=== PATIENT | female | born 1940 | race Hispanic/Latino ===

== ENCOUNTER 2016-08-27 06:35 | Inpatient (IN) | payer MEDICARE, OTHER ==
[2016-08-27 06:40] VITALS: BMI 24.9
[2016-08-27] MEDS ORDERED: Morphine 2 mg/ml ISec IVP STA (07:09)
--- NOTE | 2016-08-27 07:09 | ED PDOC ---
Arrival/HPI - General Chief Complaint: Lower Extremity Problem/Injury Time Seen by Provider: 08/27/16 07:03 Historian: Patient - History of Present Illness Narrative History of Present Illness (Text): 08/27/16 07:04 A 75 year old female, who denies any significant past medical history, presents to the emergency department complaining of left hip pain after a mechanical fall. Patient reports prior to arrival she stepped into the shower when she slipped and fell. Patient notes her left hip is slightly turned outwards and she can not move it at all. She denies any head trauma, loss of consciousness, or any other complaints at this time. PMD: Dr. Maradiaga Time/Duration: Prior to Arrival Symptom Onset: Sudden Symptom Course: Unchanged Quality: Other Activities at Onset: Light Context: Home Past Medical History - Provider Review Nursing Documentation Reviewed: Yes - Tetanus Immunization Tetanus Immunization: Unknown - Past Medical History Past Medical History: No Previous - Psychiatric Hx Anxiety: No Hx Substance Use: No - Surgical History Hx Section: Yes Hx Cholecystectomy: Yes Other/Comment: skin cancer - Anesthesia Hx Anesthesia: Yes Hx Anesthesia Reactions: No Hx Malignant Hyperthermia: No - Suicidal Assessment Feels Threatened In Home Enviroment: No Family/Social History - Physician Review Nursing Documentation Reviewed: Yes Family/Social History: Unknown Family HX Smoking Status: Former Smoker Hx Alcohol Use: Yes Frequency of alcohol use: Socially Hx Substance Use: No Hx Substance Use Treatment: No Allergies/Home Meds Allergies/Adverse Reactions: Allergies No Known Allergies Allergy (Verified 08/27/16 06:40) Review of Systems - Physician Review All systems were reviewed & negative as marked: Yes - Review of Systems Constitutional: absent: Other (head trauma) Cardiovascular: absent: Syncope Musculoskeletal: Other (left hip pain) Physical Exam Vital Signs Reviewed: Yes Vital Signs Temp Pulse Resp BP Pulse Ox 08/27/16 06:42 98.3 F 63 18 147/75 99 Temperature: Afebrile Blood Pressure: Normal Pulse: Regular Respiratory Rate: Normal Appearance: Positive for: Well-Appearing, Non-Toxic, Comfortable Pain Distress: None Mental Status: Positive for: Alert and Oriented X 3 - Systems Exam Head: Present: Atraumatic, Normocephalic Pupils: Present: PERRL Extroacular Muscles: Present: EOMI Conjunctiva: Present: Normal Mouth: Present: Moist Mucous Membranes Neck: Present: Normal Range of Motion Respiratory/Chest: Present: Clear to Auscultation, Good Air Exchange. No: Respiratory Distress, Accessory Muscle Use Cardiovascular: Present: Regular Rate and Rhythm, Normal S1, S2. No: Murmurs Abdomen: Present: Normal Bowel Sounds. No: Tenderness, Distention, Peritoneal Signs Back: Present: Normal Inspection Upper Extremity: Present: Normal Inspection. No: Cyanosis, Edema Lower Extremity: Present: Other (left hip shortening with external rotation of the left extremity). No: Edema, Normal ROM (secondary to pain with any attempts to move the left extremity) Neurological: Present: GCS=15, CN II-XII Intact, Speech Normal Skin: Present: Warm, Dry, Normal Color. No: Rashes Psychiatric: Present: Alert, Oriented x 3, Normal Insight, Normal Concentration Medical Decision Making ED Course and Treatment: 08/27/16 07:04 Impression: A 75 year old female with left hip pain after a mechanical fall. Differential Diagnosis include but are not limited to: fractures vs. dislocation Plan: -- EKG -- Chest X-ray -- Bilateral Hip with Pelvis X-ray -- Labs -- Morphine, Zofran and IV Fluids -- Reassess and disposition Prior Visits: Notes and results from previous visits were reviewed. The patient last presented to the emergency department on 09/05/14 for evaluation after being bitten by her cat. Progress Notes: EKG: Ordered, reviewed, and independently interpreted the EKG. Rate : 61 BPM Rhythm : NSR Interpretation : septal infarct, no acute changes. - Lab Interpretations I have reviewed the lab results: Yes - RAD Interpretation Radiology Orders: 08/27/16 07:07 CHEST PORTABLE [RAD] Stat 08/27/16 07:08 Hip Bi with Pelvis Fall Protocol [HIP MIN 2V W/ PELVIS RANCHO] [RAD] Stat - EKG Interpretation EKG Interpretation (Text): 08/27/16 07:23 NSR @61 septal infarct,NSSTT changes Interpreted by ED Physician: Yes Type: 12 lead EKG - Medication Orders Current Medication Orders: Sodium Chloride (Sodium Chloride 0.9%) 1,000 mls @ 100 mls/hr IV .Q10H DANA Discontinued Medications Morphine Sulfate (Morphine) 2 mg IVP STAT STA Stop: 08/27/16 07:10 Ondansetron HCl (Zofran Inj) 4 mg IVP ONCE ONE Stop: 08/27/16 07:10 - Transfer of Care Patient signed out to Dr:: Preethi Pending Labs:: Labs/xray/reassess/final disposition - Scribe Statement The provider has reviewed the documentation as recorded by the Lyndsayibhakeem Tamez Provider Scribe Attestation: All medical record entries made by the Scribe were at my direction and personally dictated by me. I have reviewed the chart and agree that the record accurately reflects my personal performance of the history, physical exam, medical decision making, and the department course for this patient. I have also personally directed, reviewed, and agree with the discharge instructions and disposition. Disposition/Present on Arrival - Present on Arrival Any Indicators Present on Arrival: No History of DVT/PE: No History of Uncontrolled Diabetes: No Urinary Catheter: No History of Decub. Ulcer: No History Surgical Site Infection Following: None - Disposition Have Diagnosis and Disposition been Completed?: No Diagnosis: Hip injury Disposition Time: 07:18 Patient Problems: Current Active Problems Problem Status Onset Hip injury Acute Condition: GOOD
[2016-08-27] MEDS ORDERED: Sodium Chloride 0.9% 1,000 ML IV SCH (07:15)
--- NOTE | 2016-08-27 07:28 | ED PDOC ---
Physical Exam Vital Signs Reviewed: Yes Vital Signs Temp Pulse Resp BP Pulse Ox 08/27/16 06:42 98.3 F 63 18 147/75 99 Temperature: Afebrile Blood Pressure: Normal Pulse: Regular Respiratory Rate: Normal Appearance: Positive for: Well-Appearing, Non-Toxic, Comfortable Pain Distress: None Mental Status: Positive for: Alert and Oriented X 3 - Systems Exam Lower Extremity: Present: NORMAL PULSES, Tenderness (with any attempts to move left lower extremity), Other (left lower extremity shortened with external rotation). No: Normal ROM Medical Decision Making ED Course and Treatment: 08/27/16 07:15 Case signed out to me from overnight by Dr. Dawn, pending labs, imaging, reevaluation and disposition. The patient is a 75 year old female who comes into the emergency department this morning with left hip pain after a mechanical fall. 08/27/16 07:50 On reevaluation, the patient is still complaining of pain, will give another dose of Morphine. 08/27/16 08:30 Hip Xray impression: As read by me, comminuted femoral fracture. Case discussed with Dr. Flores who is the orthopedic that family requested. Will order CT of the left lower extremity as per his request. 08/27/16 08:40 Chest X-ray: Creator : Khadra Jeong MD COMPARISON: No prior. FINDINGS: LUNGS: The lungs are well inflated and clear. PLEURA: No significant pleural effusion identified, no pneumothorax apparent. CARDIOVASCULAR: Normal. Atherosclerotic aortic arch calcifications are present. OSSEOUS STRUCTURES: No significant abnormalities. VISUALIZED UPPER ABDOMEN: Normal. OTHER FINDINGS: None. IMPRESSION: No active pulmonary disease. 08/27/16 09:00 Left Hip X-ray : Creator : Khadra Jeong MD COMPARISON: None. FINDINGS: BONES: There is a comminuted displaced proximal femoral fracture. There is also question of a subcapital fracture. JOINTS: Bone alignment is normal. No dislocation. SOFT TISSUES: Normal. OTHER FINDINGS: None. IMPRESSION: Acute comminuted displaced proximal femoral fracture. Question of subcapital fracture. No dislocation. 08/27/16 09:[address] Lay, who is aware and agrees with the plan to admit the patient to Med/Surg for Left Hip Fracture. Consult was placed for Dr. Hackett as per his request. I have discussed the results and plan with the patient, who expresses understanding. Patient given the opportunity to ask question, all questions were answered and there is agreement with the plan to be admitted to the hospital. - Lab Interpretations Lab Results: 08/27/16 07:20 08/27/16 07:20 Lab Results 08/27/16 07:20: WBC 9.5 D, RBC 4.36, Hgb 12.8, Hct 38.1, MCV 87.4, MCH 29.4, MCHC 33.6, RDW 14.5, Plt Count 218, MPV 10.5 08/27/16 07:20: Sodium 140, Potassium 4.1, Chloride 100, Carbon Dioxide 30, Anion Gap 14, BUN 14, Creatinine 0.7, Est GFR ( Amer) > 60, Est GFR (Non- Af Amer) > 60, Random Glucose 112 H, Calcium 9.1, Total Bilirubin 0.6, AST 24, ALT 31, Alkaline Phosphatase 58, Lactate Dehydrogenase 381, Total Creatine Kinase 50, Troponin I < 0.01, Total Protein 7.4, Albumin 4.1, Globulin 3.2, Albumin/Globulin Ratio 1.3 08/27/16 07:20: PT 10.6, INR 0.98, APTT 22.9 L I have reviewed the lab results: Yes - RAD Interpretation Radiology Orders: 08/27/16 07:07 CHEST PORTABLE [RAD] Stat 08/27/16 07:08 HIP LEFT 1 VIEW (OR ONLY) [RAD] Stat 08/27/16 08:42 EXT LOWER W/O CONTRAST LEFT [CT] Stat - Medication Orders Current Medication Orders: Sodium Chloride (Sodium Chloride 0.9%) 1,000 mls @ 60 mls/hr IV .[id number] DANA Morphine Sulfate (Morphine) 2 mg IVP Q3 PRN PRN Reason: Pain, moderate (4-7) Ondansetron HCl (Zofran Inj) 4 mg IVP Q4H PRN PRN Reason: Nausea/Vomiting Discontinued Medications Sodium Chloride (Sodium Chloride 0.9%) 1,000 mls @ 100 mls/hr IV .Q10H DANA Last Admin: 08/27/16 07:26 Dose: 100 mls/hr Morphine Sulfate (Morphine) 2 mg IVP STAT STA Stop: 08/27/16 07:10 Last Admin: 08/27/16 07:25 Dose: 2 mg Re-Assess: [facility] Pain Assessment Document 08/27/16 08:25 JO (Rec: 08/27/16 10:25 [facility] [id number]) Pain Reassessment Is this a pain reassessment? Yes Sleep Is patient sleeping during reassessment? No Presence of Pain Presence of Pain Yes Morphine Sulfate (Morphine) 4 mg IVP STAT STA Stop: 08/27/16 07:51 Last Admin: 08/27/16 07:58 Dose: 4 mg Re-Assess: [facility] Pain Assessment Document 08/27/16 08:58 JOL (Rec: 08/27/16 10:25 [facility] [id number]) Pain Reassessment Is this a pain reassessment? Yes Sleep Is patient sleeping during reassessment? No Presence of Pain Presence of Pain Yes Morphine Sulfate (Morphine) 4 mg IVP STAT STA Stop: 08/27/16 09:50 Last Admin: 08/27/16 09:55 Dose: 4 mg Ondansetron HCl (Zofran Inj) 4 mg IVP ONCE ONE Stop: 08/27/16 07:10 Last Admin: 08/27/16 07:26 Dose: 4 mg Ondansetron HCl (Zofran Inj) 4 mg IVP STAT STA Stop: 08/27/16 10:33 Last Admin: 08/27/16 10:37 Dose: 4 mg - Scribe Statement The provider has reviewed the documentation as recorded by the Sukhdeep Tamez Provider Scribe Attestation: All medical record entries made by the Sukhdeep were at my direction and personally dictated by me. I have reviewed the chart and agree that the record accurately reflects my personal performance of the history, physical exam, medical decision making, and the department course for this patient. I have also personally directed, reviewed, and agree with the discharge instructions and disposition. Disposition/Present on Arrival - Present on Arrival Any Indicators Present on Arrival: No History of DVT/PE: No History of Uncontrolled Diabetes: No Urinary Catheter: No History of Decub. Ulcer: No History Surgical Site Infection Following: None - Disposition Have Diagnosis and Disposition been Completed?: Yes Diagnosis: Hip fracture Disposition: HOSPITALIZED Disposition Time: 09:32 Patient Plan: Admission Patient Problems: Current Active Problems Problem Status Onset Hip injury Acute Condition: GUARDED
[2016-08-27 07:39] LABS: HEMATOCRIT 38.1 % (36.0-48.0); MEAN CELL VOLUME 87.4 fL (80.0-105.0); MEAN CORPUSCULAR HEMOGLOBIN 29.4 pg (25.0-35.0); MEAN CORPUSCULAR HGB CONC 33.6 g/dl (31.0-37.0); MEAN PLATELET VOLUME 10.5 fl (7.0-11.0); RED CELL DISTRIBUTION WIDTH 14.5 % (11.5-14.5); WHITE BLOOD COUNT 9.5 [, 10^3/ul] (4.5-11.0)
[2016-08-27 07:44] LABS: ALB/GLOB RATIO 1.3 (1.1-1.8); ALKALINE PHOSPHATASE 58 U/L (38-133); ALT/SGPT 31 U/L (7-56); AST/SGOT 24 U/L (15-39); BILIRUBIN,TOTAL 0.6 mg/dL (0.2-1.3); BLOOD UREA NITROGEN 14 mg/dL (7-21); CALCIUM 9.1 mg/dL (8.4-10.5); CARBON DIOXIDE 30 mmol/L (21-33); CHLORIDE 100 mmol/L (98-107); GFR AFRICAN-AMERICAN > 60; GLUCOSE,RANDOM 112 mg/dL (70-110); INR 0.98 (0.93-1.08); PARTIAL THROMBOPLASTIN TIME 22.9 Seconds (23.7-30.8); POTASSIUM 4.1 mmol/L (3.6-5.0); SODIUM 140 mmol/L (132-148); TOTAL PROTEIN 7.4 g/dL (5.8-8.3)
[2016-08-27] MEDS ORDERED: Morphine 4 mg/ml ISec IVP STA ×2 (07:50→09:49)
[2016-08-27 07:55] LABS: TROPONIN I < 0.01 ng/mL
--- NOTE | 2016-08-27 08:38 | RAD ---
HISTORY: fever COMPARISON: No prior. FINDINGS: LUNGS: The lungs are well inflated and clear. PLEURA: No significant pleural effusion identified, no pneumothorax apparent. CARDIOVASCULAR: Normal. Atherosclerotic aortic arch calcifications are present. OSSEOUS STRUCTURES: No significant abnormalities. VISUALIZED UPPER ABDOMEN: Normal. OTHER FINDINGS: None. IMPRESSION: No active pulmonary disease.
--- NOTE | 2016-08-27 08:59 | RAD ---
PROCEDURE: Left Hip X-ray Radiographs. HISTORY: injury left hip COMPARISON: None. FINDINGS: BONES: There is a comminuted displaced proximal femoral fracture. There is also question of a subcapital fracture. JOINTS: Bone alignment is normal. No dislocation. SOFT TISSUES: Normal. OTHER FINDINGS: None. IMPRESSION: Acute comminuted displaced proximal femoral fracture. Question of subcapital fracture. No dislocation.
--- NOTE | 2016-08-27 11:47 | CON ---
DATE: 08/27/2016 HISTORY OF PRESENT ILLNESS: The patient is a 75-year-old woman who slipped in the shower with a resu ltant fracture of proximal femoral on the left side. PAST MEDICAL HISTORY: Free of cardiac disease. No shortness of breath, no chest pain, no diabetes m ellitus, no hypertension. The patient is on no medications. SOCIAL HISTORY: Negative smoker. REVIEW OF SYSTEMS: Reviewed. No syncope, no chest pain. The patient, prior to her fall, was able t o walk unlimited and exercise. She can walk up 2-3 flights of stairs without issues. She was told of a left bundle branch block in the past. PHYSICAL EXAMINATION: VITAL SIGNS: Blood pressure is 147/75, the heart rate is in the 60s. NECK: Negative JVD. LUNGS: Without rales. HEART: Reveals S1, S2. EXTREMITIES: Without edema. EKG shows normal sinus rhythm with poor R-wave progression with an IVCD. LABORATORIES: Troponins are negative. Hemoglobin is 12.8. IMPRESSION: 1. Status post fall with a left hip fracture. 2. No syncope. 3. Status post history of a bundle branch block, which is not apparent on this EKG. 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 Given these findings, there are no cardiac contraindications for surgery for hip fracture. As soon a s surgery is done, the better. Marcelo Hackett MD cc: [id number] TT: 08/27/2016 11:46:57 Confirmation # [id number] Dictation # [id number] en
--- NOTE | 2016-08-27 11:51 | HP ---
HISTORY OF PRESENT ILLNESS: I was called down to the Emergency Room to see her. She had apparently hurt her left hip. She is a 75-year-old female who tells me she was getting into her walk-in tub and slipped, went backwards, landed on the left hip and could not get up. It was a mechanical fall. She did not hit her head. She did not lose consciousness. She was in pain and she could not move. She is here in the Emergency Room. PAST MEDICAL HISTORY: Having some autoimmune disease with gum issues. She has had skin cancer on her arm removed, , cholecystectomy and also cataract surgery in the past. FAMILY HISTORY: There is hypertension in the family. SOCIAL HISTORY: She is a former smoker. Drinks daily, white wine. No substance abuse. ALLERGIES: No known drug allergies. MEDICATIONS: She tells me she does not take any medications except for a cream for her gums periodically when it acts up. REVIEW OF SYSTEMS: HEENT: No acute vision loss or hearing loss. No sore throat. No gum issues at this time. NECK: Supple. No problems. HEART: No chest pain or palpitations. LUNGS: No coughing or mucus congestion. ABDOMEN: There is no nausea, vomiting, constipation or diarrhea. EXTREMITIES: Her left leg is in extreme pain in the hip. She cannot walk or stand from the fall, and she feels that it is out of place. PHYSICAL EXAMINATION: VITAL SIGNS: She has a 98.3 temp, 63 pulse, 18 respiratory rate, 147/75 blood pressure, 99% O2 sat on room air. HEENT: Head is atraumatic, normocephalic. Extraocular muscles are intact. Pupils equal, reactive to light. Throat is moist, no erythema. NECK: Supple, no JVD. HEART: Regular rate. Normal S1, S2. LUNGS: Clear to auscultation bilaterally. ABDOMEN: Soft, nontender, positive bowel sounds. No guarding, no rebound, no CVA tenderness. EXTREMITIES: The left hip is shortened and externally rotated. It looks like a left hip fracture. NEUROLOGIC: GCS is 15. Cranial nerves II-XII grossly intact. Speech is normal. Alert and oriented x 3. SKIN: Warm and dry. She is worried about her left hip. They are going to [place] in 6 weeks and wants to know if she can make it by then. It was a mechanical fall. LABORATORY DATA: She had multiple tests. She has a 140 sodium, potassium 4.1, BUN 14, creatinine 0.7, GFR is greater than 60, sugar is 112, calcium is 9.1. Total bili is 0.6, AST is 24, ALT is 31, alkaline phosphatase 58, total protein is 7.4. Troponin-I is less than 0.01. Lactic dehydrogenase is 381, total protein 7.4, albumin is 4.1, globulin 3.2. INR is 0.98. She has a 9.5 white count, 12.8 hemoglobin, 38.1 hematocrit with 218 platelets. On report it shows a chest x-ray being normal. The left hip shows acute comminuted displaced proximal femoral fracture, question of subcapital fracture. She will be having a consult with her orthopedic doctor, Dr. Hogan. Also she will have cardiology for optimization before surgery. She will have labs, EKG, chest x-ray which was normal. Hopefully, she will do well. She is here for a fall, mechanical fall, and a fractured left hip. Discussed with the family at length. Anand Lay DO cc: [id number] TT: 08/27/2016 11:50:37 mn MTDD
--- NOTE | 2016-08-27 12:08 | CT ---
PROCEDURE: CT of the left lower extremity without contrast HISTORY: left hip down to knee COMPARISON: TECHNIQUE: CT of the left femur was performed from the hip joint to the knee. Sagittal and coronal reconstructions were provided FINDINGS: There is a comminuted displaced fracture of the proximal shaft of the femur. There is wide separation of fracture fragments. There is 90 degrees of rotation of the knee laterally relative to the hip. The hip joint in the knee joint are intact. IMPRESSION: Severely comminuted displaced fracture of the proximal shaft of the humerus. The hip joint and knee joint are intact
--- NOTE | 2016-08-27 12:12 | CARD ---
APPROVED REPORT EKG Measurement Heart [id number] <Conclusion> Normal sinus rhythm Septal infarct, age undetermined Abnormal ECG
[2016-08-27] MEDS ORDERED: Bupivacaine 0.5% Inj(30mL) ONE (14:38)
[2016-08-27] MEDS ORDERED: Propofol 10 mg/ml Inj (20 ML) ONE (15:14)
[2016-08-27] MEDS ORDERED: Lidocaine 1% Inj (20ml) ONE (15:14)
[2016-08-27] MEDS ORDERED: Succinylcholine 200 mg/10 ml Inj IV ONE (15:14)
[2016-08-27] MEDS ORDERED: ePHEDrine 50 mg/ml Inj ONE (15:38)
--- NOTE | 2016-08-27 16:45 | CON ---
DATE: 08/27/2016 REASON FOR CONSULTATION: Left hip fracture. HISTORY OF PRESENT ILLNESS: This is a 75-year-old female with history of osteoporosis, sustained a s lip and fall in her bathtub, landing on her left lower extremity. The patient was unable to get up d ue to pain and external rotation of her leg. She was brought to the Emergency Room and diagnosed wit h a displaced subtrochanteric hip fracture. I was consulted for further evaluation and management of the patient. PAST MEDICAL HISTORY: Osteoporosis. PHYSICAL EXAMINATION: Left lower extremity is externally rotated and shortened. Distal pulses are + 2. Thigh compartments are soft with capillary refill. The patient is unable to move her hip due to severe pain. Sensation is intact throughout the lower extremity. Skin is intact. X-rays of left hip were seen and reviewed, shows a displaced, shortened, and externally rotated, subt rochanteric hip fracture. ASSESSMENT: Left subtrochanteric hip fracture, closed. PLAN: I discussed the above findings with the patient and the family members. I recommended surgica l fixation for early ambulation. Risks of surgery were explained but not limited to bleeding, infect ion, tendon, nerve or vessel injury, instability, malunion, nonunion, chronic pain, potential need fo r additional surgery in the future. The patient understood the above risks and elected to proceed. Will schedule this surgery pending preoperative clearance. Deepak Hogan M.D. cc: [id number] TT: 08/27/2016 16:45:07 Confirmation # [id number] Dictation # [id number] ricardo
[2016-08-27] MEDS ORDERED: Lactated Ringer's 1,000 ML IV SCH (19:04)
[2016-08-27] MEDS ORDERED: HYDROmorphone 0.5 mg/0.5 ml ISec ONE (19:54)
[2016-08-27] MEDS: HYDROmorphone 0.5 mg/0.5 ml ISec IVP PRN (19:55)
[2016-08-28] MEDS: ceFAZolin 1 gm in NS 1 GM/100 ML BAG IVPB SCH ×2 (05:46)
[2016-08-28 07:30] LABS: MEAN CELL VOLUME 87.6 fL (80.0-105.0); MEAN CORPUSCULAR HEMOGLOBIN 29.5 pg (25.0-35.0); MEAN CORPUSCULAR HGB CONC 33.6 g/dl (31.0-37.0); MEAN PLATELET VOLUME 10.4 fl (7.0-11.0); RED CELL DISTRIBUTION WIDTH 14.9 % (11.5-14.5); WHITE BLOOD COUNT 8.5 [, 10^3/ul] (4.5-11.0)
[2016-08-28 07:49] LABS: ALB/GLOB RATIO 1.1 (1.1-1.8); ALKALINE PHOSPHATASE 38 U/L (38-133); ALT/SGPT 32 U/L (7-56); AST/SGOT 24 U/L (15-39); BILIRUBIN,TOTAL 0.5 mg/dL (0.2-1.3); BLOOD UREA NITROGEN 12 mg/dL (7-21); CALCIUM 7.5 mg/dL (8.4-10.5); CARBON DIOXIDE 27 mmol/L (21-33); CHLORIDE 105 mmol/L (98-107); GFR AFRICAN-AMERICAN > 60; GLUCOSE,RANDOM 130 mg/dL (70-110); POTASSIUM 4.2 mmol/L (3.6-5.0); SODIUM 137 mmol/L (132-148)
--- NOTE | 2016-08-28 08:19 | PCM.SURG1 ---
Surgeon's Initial Post Op Note - Surgeon's Notes Surgeon: Edison Therapy Aide: Jaymie umanzor Type of Anesthesia: General Endo Pre-Operative Diagnosis: left subtrochanteric femur fracture Operative Findings: see dictation Post-Operative Diagnosis: same Operation Performed: ORIF L femur with IM nail Specimen/Specimens Removed: no Estimated Blood Loss: EBL {In ML}: 500 Date of Surgery/Procedure: 08/27/16 Time of Surgery/Procedure: 16:00
--- NOTE | 2016-08-28 08:42 | CP.PCM.PN ---
Subjective - Date & Time of Evaluation Date of Evaluation: 08/28/16 Time of Evaluation: 07:00 - Subjective Subjective: Pt is doing well from surgery. Laying comfortable in bed. Feels lethargic. Pain well controlled Objective - Vital Signs/Intake and Output Vital Signs (last 24 hours): Temp Pulse Resp BP Pulse Ox 98.4 F 88 18 104/48 L 100 08/28/16 08:00 08/28/16 08:00 08/28/16 08:00 08/28/16 08:00 08/28/16 08:00 Intake and Output: 08/28/16 08/28/16 06:59 18:59 Intake Total 0 Output Total 200 Balance -200 - Medications Medications: Current Medications Enoxaparin Sodium (Lovenox) 40 mg SC DAILY DANA PRN Reason: Protocol Furosemide (Lasix) 40 mg IVP ONCE ONE Stop: 08/28/16 12:01 Hydromorphone HCl (Dilaudid) 0.5 mg IVP Q15M PRN PRN Reason: Pain, moderate (4-7) Last Admin: 08/27/16 19:55 Dose: 0.5 mg Hydromorphone HCl (Dilaudid) 0.5 mg IVP Q4H PRN PRN Reason: Pain, moderate (4-7) Sodium Chloride (Sodium Chloride 0.9%) 1,000 mls @ 60 mls/hr IV .[id number] [facility] Morphine Sulfate (Morphine) 2 mg IVP Q3 PRN PRN Reason: Pain, moderate (4-7) Ondansetron HCl (Zofran Inj) 4 mg IVP Q4H PRN PRN Reason: Nausea/Vomiting Last Admin: 08/28/16 00:21 Dose: 4 mg - Labs Labs: 08/28/16 07:00 08/28/16 07:00 PT 10.6 Seconds (9.9-11.8) 08/27/16 07:20 INR 0.98 (0.93-1.08) 08/27/16 07:20 APTT 22.9 Seconds (23.7-30.8) L 08/27/16 07:20 - Constitutional Appears: Well - Extremities Exam Extremities Exam: Normal Capillary Refill - Neurological Exam Neurological Exam: Alert, Awake Assessment and Plan - Assessment and Plan (Free Text) Assessment: POD 1 L femur ORIF Plan: Toe touch weight bare LLE out of bed today ok for blood transfusion DVT ppx
--- NOTE | 2016-08-28 09:07 | PN ---
DATE: 08/28/2016 I saw the patient resting in bed. She is a little bit uncomfortable. She had her surgery yesterday for the left hip fracture from a fall. She is uncomfortable. She is getting pain medications. She is on Dilaudid, Lasix once after she gets transfused 2 units today, Lovenox and Zofran. PHYSICAL EXAMINATION: VITAL SIGNS: Temp 98.4, 88 pulse, 104/48 blood pressure, 18 respiratory rate and 100% O2 sat on room air. HEAD: Atraumatic, normocephalic. THROAT: Moist. NECK: Supple. HEART: Regular rate. LUNGS: Decreased breath sounds, but clear to auscultation. ABDOMEN: Soft, nontender, positive bowel sounds. EXTREMITIES: The left leg is now the same length, not shorter anymore, and no edema. She has a 137 sodium, potassium 4.2, BUN is 12, creatinine 0.7, GFR is greater than 60, sugar is 130, calcium 7.5, total bili is 0.5, AST is 24, ALT is 32, alk phos 38, total protein is 5. White count 8.5, now the hemoglobin dropped from 12.8 to 7.4 and she had a lot of blood in the surgery and platel ets are 174. I am going to transfuse her 2 units of packed red blood cells today. We are going to give her Lasix 40 in between the units. She might need more units after that. We will watch her closely. We will call case management in for placement to a subacute rehab. She tells me she has to go to [facility] in 6 weeks. Hopefully, on Wednesday, we can get her to subacute rehab. I will check her labs tomorrow. I will discuss with the nurse. Anand Lay DO cc: [id number] TT: 08/28/2016 09:06:06 Confirmation # [id number] Dictation # [id number] en
--- NOTE | 2016-08-28 09:11 | RAD ---
PROCEDURE: Femur two views HISTORY: s/p left femur ORIF COMPARISON: TECHNIQUE: Two views FINDINGS: There is a compression screw and intramedullary octavio which fixates a comminuted fracture of the proximal shaft of the femur IMPRESSION: As above
[2016-08-28] MEDS: Enoxaparin 40 mg Syringe SC SCH (09:46)
--- NOTE | 2016-08-28 11:05 | OP ---
PROCEDURE DATE: 08/27/2016 SURGEON: Deepak Hogan M.D. SEWING MACHINE OPERATOR SEMIAUTOMATIC: Jaymie, . PREOPERATIVE DIAGNOSIS: Displaced closed left subtrochanteric femur fracture. POSTOPERATIVE DIAGNOSIS: Displaced closed left subtrochanteric femur fracture. PROCEDURE: Left femur open reduction internal fixation using a long [employer] TFN nail. ESTIMATED BLOOD LOSS: 500 mL. ANESTHESIA: General. COMPLICATIONS: None. DISPOSITION: Stable to recovery room. SPECIMENS: None. INDICATIONS: A 75-year-old community ambulator who slipped and fell and was diagnosed with a displaced subtrochanteric fracture. She was seen in the Emergency Room and taken to the operating room for the above surgery. Risks and benefits of the surgery were explained. Risks included, but not limited to bleeding, infection, tendon, nerve or vessel injury, instability, chronic pain, malunion, nonunion, potential need for additional surgery in the future. The patient understood the above risks and elected to proceed. Informed consent was obtained. DESCRIPTION OF PROCEDURE: The patient was brought to the operating room and placed supine on the operating room traction table. General anesthesia was given. Prophylactic antibiotics were given. The left lower extremity then was placed into traction and prepped and draped in standard surgical fashion. The leg was derotated, adducted and traction was used. Fluoroscopy was used to confirm the reduction maneuver. Under closed reduction, the proximal fragment was still hyperflexed. Thus, decision was made to do an open reduction. A 5-6 cm lateral incision over the fracture site was made. Hemostasis was obtained with cautery. Incision was carried down to the fascial layer of the IT band. The IT band was split in the midline. Next, the vastus lateralis muscles were exposed. The muscles were split in line and the fracture site was exposed. The edges of the fracture site were cleaned out and periosteum was elevated. We used a rongeur, curettes and irrigation to clean out the fracture site. This was the lateral cortex which had a spiral fracture and displacement. Then , under direct visualization, fracture reduction was performed with 2 lobster retraction clamps. The fracture was well aligned and checked both on AP and lateral films. It was brought out to length. Rotation was anatomic. Next, work was begun on placing a femoral nail . Another 3-4 cm incision was made proximal to the greater trochanter area. Incision was carried down to the greater trochanter. A starting guidewire at the tip of the trochanter and advanced into the medullary canal. This was placed in the center-center position on both AP and lateral fluoroscopy. After this, an opening reamer was used to open the medullary canal. Then, a ball tip guidewire was passed into the medullary canal, down the femur, past the fracture site and distally to the level of the knee. The fracture still maintain its reduction. After this, sequential reaming was begun. We started with a 9 mm reamer and reamed up to an 11 mm reamer after good cortical shatter was felt. Next, a guide ruler was used to measure the appropriate length of the nail. Appropriate nail was selected. This was a long TFN nail and was assembled on the backtable. The nail with the guide handle was inserted into the medullary canal down the femur with light hammer taps to the appropriate length. Again, the length was confirmed on fluoroscopy. After this, the ball tip guidewire was removed. The work was begun on locking the nail and placing a femoral neck helical blade. The guide for the helical blade was placed. A guidewire was inserted to check good positioning in the femoral neck. An appropriate length helical blade was selected. This was a 95 mm plate. We then reamed the femoral neck to 95 mm. After this, the helical blade was hammered into place into the femoral neck and it was in good position on both AP and lateral films. This was 5 mm subchondral in center-center position. Next, traction was removed and work was begun on locking the nail distally. Perfect [place] technique was used for locking the nail lateral to medial direction. An incision was made over the distal locking hole. Under fluoroscopy, appropriate drill was used to drill through the bone bicortically and the nail. An appropriate screw was selected and placed, locking the nail distally. This was repeated a second time for a second distal locking hole. Final x-rays confirmed good alignment of the femur , out to length in both AP and lateral films. The nail was in excellent position. The guides were removed. Rotation of the leg was anatomic. Next, all the wounds were copiously irrigated and closed with 1-0 Vicryl for deep layer followed by 2-0 Vicryl followed by olya. Sterile dressing was applied. The patient tolerated the procedure well and was returned to recovery room in excellent condition. Deepak Hogan M.D. cc: [id number] TT: 08/28/2016 11:04:55 tn MTDD
[2016-08-28] MEDS: HYDROmorphone 0.5 mg/0.5 ml ISec IVP PRN ×2 (11:12→15:27)
--- NOTE | 2016-08-28 13:16 | PN ---
DATE: 08/28/2016 The patient is status post hip surgery for fracture. She is without complaints other than pain. PHYSICAL EXAMINATION: VITAL SIGNS: Blood pressure is 104/50, the heart rate is in the 80s. NECK: Negative JVD. LUNGS: Without rales. HEART: Reveals S1, S2. EXTREMITIES: Without edema. LABORATORIES: Hemoglobin is 7.4. Chemistries: BUN and creatinine are unremarkable. IMPRESSION: 1. Status post hip fracture. 2. Status post surgery. 3. Postoperative anemia. 4. Pain from the surgical site. Given these findings, I agree with the need for blood transfusions. They have been ordered and will be administered. Marcelo Hackett MD cc: [id number] TT: 08/28/2016 13:15:59 Confirmation # [id number] Dictation # [id number]
--- NOTE | 2016-08-28 15:06 | RAD ---
PROCEDURE: Fluoroscopy up to 1 hour HISTORY: ORIF LT HIP COMPARISON: TECHNIQUE: Fluoroscopy was provided in the operating room. 1 minutes and 50 seconds of fluoro time were used. Twelve images were submitted FINDINGS: Study shows placement of an intramedullary octavio and compression screw IMPRESSION: As above
[2016-08-28] MEDS: Morphine 2 mg/ml ISec IVP PRN ×2 (17:17→22:27)
[2016-08-29 00:50] LABS: HEMATOCRIT 26.1 % (36.0-48.0); MEAN CORPUSCULAR HGB CONC 34.5 g/dl (31.0-37.0); MEAN PLATELET VOLUME 10.6 fl (7.0-11.0); RED CELL DISTRIBUTION WIDTH 14.6 % (11.5-14.5); WHITE BLOOD COUNT 8.3 [, 10^3/ul] (4.5-11.0)
[2016-08-29] MEDS: Morphine 2 mg/ml ISec IVP PRN ×4 (02:40→19:43)
[2016-08-29 08:10] LABS: HEMATOCRIT 26.3 % (36.0-48.0); MEAN CELL VOLUME 87.4 fL (80.0-105.0); MEAN CORPUSCULAR HEMOGLOBIN 29.9 pg (25.0-35.0); MEAN CORPUSCULAR HGB CONC 34.2 g/dl (31.0-37.0); MEAN PLATELET VOLUME 10.8 fl (7.0-11.0); RED CELL DISTRIBUTION WIDTH 14.8 % (11.5-14.5); WHITE BLOOD COUNT 8.3 [, 10^3/ul] (4.5-11.0)
[2016-08-29 08:26] LABS: ALB/GLOB RATIO 1.1 (1.1-1.8); ALKALINE PHOSPHATASE 44 U/L (38-133); ALT/SGPT 39 U/L (7-56); AST/SGOT 50 U/L (15-39); BILIRUBIN,TOTAL 0.7 mg/dL (0.2-1.3); BLOOD UREA NITROGEN 7 mg/dL (7-21); CALCIUM 7.5 mg/dL (8.4-10.5); CARBON DIOXIDE 30 mmol/L (21-33); CHLORIDE 104 mmol/L (95-110); GFR AFRICAN-AMERICAN > 60; GLUCOSE,RANDOM 101 mg/dL (70-110); POTASSIUM 3.8 mmol/L (3.6-5.0); SODIUM 138 mmol/L (132-148); TOTAL PROTEIN 5.2 g/dL (5.8-8.3)
[2016-08-29] MEDS ORDERED: Bisacodyl 5mg EC Tab PO ONE (09:29)
[2016-08-29] MEDS: Enoxaparin 40 mg Syringe SC SCH (09:31)
--- NOTE | 2016-08-29 09:54 | PN ---
DATE: 08/29/2016 I saw her this morning, resting comfortably in bed. She is looking forward to physical therapy. She tells me [facility] subacute rehab in [place] would fit her fine. She is from [place]. She had a fall. She fractured left hip. She had surgery already. I am waiting for physical therapy to let us know that subacute rehabilitation is the appropriate place for her. I was hoping socially responsible investment adviser a sd case management would have it arranged so tomorrow when can get her to [facility]. We are working on that today. Also, a little bit anxious. She is getting some Xanax and also some Ambien to help her sleep and she feels very bloated. I am going to give her Dulcolax suppositories. She is getting nauseous from time to time so I gave her some Zofran. I hoping the Dulcolax suppository will help t paola get moving and she will move her bowels and the bloating will go away. PHYSICAL EXAMINATION: VITAL SIGNS: Today are 99.1, 86 pulse, 125/58 blood pressure, 20 respiratory rate, 98% O2 sat on dior m air. HEENT: Head is atraumatic, normocephalic. HEART: Regular rate. LUNGS: Clear to auscultation. ABDOMEN: Soft, mildly distended, bowel sounds. She feels constipated. EXTREMITIES: No edema, status post left hip fracture repair with surgery. LABORATORY DATA: She has an 8.3 white count, hemoglobin is 9, hematocrit 26.3, platelets 128. Sodiu m 138, potassium 3.8, BUN 7, creatinine 0.7, GFR is greater than 60, sugar is 101, calcium 7.5. Tota l bili is 0.7, AST 50, ALT 39, alkaline phosphatase 44, total protein is 5.2. She is being seen by cardiology and surgery. She is status post fall, hip fracture, status post surg alisa, anemia. She was transfused. She needs physical therapy and my goal is to discharge her tomorro w, Wednesday, to [facility] for further physical therapy and care. Ambien and Xanax for sleep and anxiet y. She is to get Dulcolax to get the bowels moving. She is also on pain medication, Lovenox. Josselyn wen, she will do well. My plan is to discharge her tomorrow, hopefully that can be arranged. Anand Lay DO cc: [id number] TT: 08/29/2016 09:53:18 Confirmation # [id number] Dictation # [id number] jn
[2016-08-29] MEDS: Sodium Chloride 0.9% 1,000 ML IV SCH (19:49)
[2016-08-30] MEDS: Morphine 2 mg/ml ISec IVP PRN ×4 (03:19→20:18)
[2016-08-30 08:55] LABS: ALKALINE PHOSPHATASE 47 U/L (38-133); ALT/SGPT 51 U/L (7-56); AST/SGOT 55 U/L (15-39); BILIRUBIN,TOTAL 0.6 mg/dL (0.2-1.3); BLOOD UREA NITROGEN 6 mg/dL (7-21); CALCIUM 7.6 mg/dL (8.4-10.5); CARBON DIOXIDE 30 mmol/L (21-33); CHLORIDE 103 mmol/L (98-107); GFR AFRICAN-AMERICAN > 60; GLUCOSE,RANDOM 92 mg/dL (70-110); POTASSIUM 3.4 mmol/L (3.6-5.0); SODIUM 138 mmol/L (132-148); TOTAL PROTEIN 4.9 g/dL (5.8-8.3)
[2016-08-30] MEDS: Enoxaparin 40 mg Syringe SC SCH (09:40)
[2016-08-30 09:47] LABS: MEAN CELL VOLUME 88.9 fL (80.0-105.0); MEAN CORPUSCULAR HEMOGLOBIN 30.6 pg (25.0-35.0); MEAN CORPUSCULAR HGB CONC 34.4 g/dl (31.0-37.0); MEAN PLATELET VOLUME 10.7 fl (7.0-11.0); RED CELL DISTRIBUTION WIDTH 14.6 % (11.5-14.5); WHITE BLOOD COUNT 8.4 [, 10^3/ul] (4.5-11.0)
[2016-08-30 09:53] LABS: HEMATOCRIT 20.9 % (36.0-48.0)
[2016-08-30] MEDS: Sodium Chloride 0.9% 1,000 ML IV SCH (10:26)
[2016-08-30] MEDS ORDERED: Sodium Chloride 0.9% 1,000 ML IV SCH (11:30)
--- NOTE | 2016-08-30 12:07 | PN ---
DATE: 08/30/2016 I saw the patient resting comfortably in bed. Her neck has been bothering her. She feels it is a pi llow in the bed. Otherwise, she sat up in bed with physical therapy yesterday. She is status post l eft hip ORIF from a fall. MEDICATIONS: She is on Ambien, Dilaudid, Dulcolax, Lovenox, morphine, potassium replacement, IV flui ds, Xanax, and Zofran. She is starting to eat a little bit better. PHYSICAL EXAMINATION: VITAL SIGNS: We have a 98.9 temp, 90 pulse, 112/58 blood pressure, 18 respiratory rate, 96% O2 sat o n room air. HEAD: Atraumatic, normocephalic. HEART: Regular rate. LUNGS: Clear to auscultation. ABDOMEN: Soft. EXTREMITIES: No edema. She is status post left ORIF. LABORATORY DATA: She has a 138 sodium, potassium 3.4. I am going to replace the potassium. She has a BUN of 6, creatinine 0.7. GFR is greater than 60. Sugar is 92. Calcium is 7.6. Total bili is 0 .6. AST 55. ALT is 51. Alk phos is 47. Total protein is 4.9. INR is 0.98. She has an 8.4 white count. The hemoglobin dropped again to 7.2. It dropped 2 days ago to 7.4. I had to give her 2 unit s of packed red blood cells, awaiting for an occult blood to be resulted. She has a 20.9 hematocrit and 132 platelets. I am not sure if I should put her on GI consult versus hematology consult, waiting for occult blood t o come back. We will check her labs tomorrow. I am going to transfuse her 2 units of packed red blo od cells today with Lasix 40 one-time dose in-between. Potassium rider to replace the potassium. I am going to decrease the IV fluids to 40 mL an hour, and physical therapy. She is status post fall and left ORIF. Now she has anemia. Hopefully, this is just all chronic bloo d loss. Anand Lay DO cc: [id number] TT: 08/30/2016 12:06:53 Confirmation # [id number] Dictation # [id number] jn
--- NOTE | 2016-08-30 15:29 | CP.PCM.PN ---
Subjective - Date & Time of Evaluation Date of Evaluation: 08/29/16 Time of Evaluation: 11:00 - Subjective Subjective: pt is doing well from surgery. Sitting out of bed in a chair. Pain well controlled Objective - Vital Signs/Intake and Output Vital Signs (last 24 hours): Temp Pulse Resp BP Pulse Ox 98.9 F 90 18 112/58 L 96 08/30/16 07:48 08/30/16 07:48 08/30/16 07:48 08/30/16 07:48 08/30/16 07:48 Intake and Output: 08/30/16 08/30/16 06:59 18:59 Intake Total 1800 760 Balance 1800 760 - Medications Medications: Current Medications Alprazolam (Xanax) 0.25 mg PO BID PRN; Protocol PRN Reason: Anxiety Stop: 09/05/16 10:01 Last Admin: 08/29/16 10:01 Dose: 0.25 mg Enoxaparin Sodium (Lovenox) 40 mg SC DAILY DANA PRN Reason: Protocol Last Admin: 08/30/16 09:40 Dose: 40 mg Hydromorphone HCl (Dilaudid) 0.5 mg IVP Q15M PRN PRN Reason: Pain, moderate (4-7) Last Admin: 08/28/16 11:12 Dose: 0.5 mg Hydromorphone HCl (Dilaudid) 0.5 mg IVP Q4H PRN PRN Reason: Pain, moderate (4-7) Last Admin: 08/28/16 15:27 Dose: 0.5 mg Sodium Chloride (Sodium Chloride 0.9%) 1,000 mls @ 40 mls/hr IV .Q24H [facility] Morphine Sulfate (Morphine) 2 mg IVP Q3 PRN PRN Reason: Pain, moderate (4-7) Last Admin: 08/30/16 13:29 Dose: 2 mg Ondansetron HCl (Zofran Inj) 4 mg IVP Q4H PRN PRN Reason: Nausea/Vomiting Last Admin: 08/30/16 10:26 Dose: 4 mg Zolpidem Tartrate (Ambien) 5 mg PO HS PRN; Protocol PRN Reason: Insomnia Last Admin: 08/29/16 22:56 Dose: 5 mg - Labs Labs: 08/30/16 08:28 08/30/16 08:28 PT 10.6 Seconds (9.9-11.8) 08/27/16 07:20 INR 0.98 (0.93-1.08) 08/27/16 07:20 APTT 22.9 Seconds (23.7-30.8) L 08/27/16 07:20 - Constitutional Appears: Well, No Acute Distress - Extremities Exam Additional comments: Thigh compartement soft and compressible. No tenderness with passive stretch. Distal pulses +2. Dressing clean and dry, Neurovascular intact.
[2016-08-30 16:08] LABS: ADD MANUAL DIFF? NO
[2016-08-30 16:35] LABS: BASO # 0.02 [, K/mm3] (0.0-2.0); BASO % 0.2 % (0.0-3.0); EOS # 0.1 (0.0-0.7); EOS % 0.6 % (1.5-5.0); GRAN # 4.96 (1.4-6.5); GRAN % 60.4 % (50.0-68.0); LYMPH # 1.8 (1.2-3.4); LYMPH % 22.2 % (22.0-35.0); MEAN CELL VOLUME 88.3 fL (80.0-105.0); MEAN CORPUSCULAR HEMOGLOBIN 30.5 pg (25.0-35.0); MEAN CORPUSCULAR HGB CONC 34.6 g/dl (31.0-37.0); MEAN PLATELET VOLUME 10.3 fl (7.0-11.0); MONO # 1.4 (0.1-0.6); MONO % 16.6 % (1.0-6.0); PLATELET COUNT 132 [, 10^3/uL] (120.0-450.0); RED CELL DISTRIBUTION WIDTH 14.1 % (11.5-14.5); WHITE BLOOD COUNT 8.2 [, 10^3/ul] (4.5-11.0)
[2016-08-30 16:41] LABS: HEMATOCRIT 18.8 % (36.0-48.0)
--- NOTE | 2016-08-30 19:47 | CP.PCM.CON ---
History of Present Illness - History of Present Illness History of Present Illness: ICU Consult Note for Dr. Jerad Lee, PGY-1 Internal Medicine This is a 75 yo F s/p L-hip repair (POD #2) who we were consulted for due to repeated Hgb drops requiring transfusion. She initially presented to the hospital with L-hip/femoral fracture 2/2 mechanical fall (slipped in shower , denies head trauma or LOC). Underwent ORIF L femur with IM nail on 08/28, was subsequently found to have post-op Hgb of 7.2, was transfused 2 units of pRBCs, improved to 9.0 after transfusion, remains 9.0 yesterday, today decreased to 7.2 this AM, on recheck found to be 6.5. Has remained hemodynamically stable throughout this entire period, with 48 hour SBP range 105-146 (predominantly 110 's-120's), and has not been tachycardic at all during this period. Patient denies dizziness, lightheadedness, shortness of breath, pressure/vice-like sensation in L hip or leg, or syncope/near-syncope. Only admits to some fatigue today, otherwise no complains, and no issue when out of bed to chair for 4-5 hours yesterday. No BM since procedure but passing flatus freely, tolerating PO fluid intake, and urinating regularly without pain, straining, sensation of incomplete emptying, or hematuria. No sensation of abdominal fullness/pain/distension/mass. Per nursing, L leg femoral and distal pulses have remains intact and consistent since the ORIF procedure. Medical Hx: Osteoperosis Surgical Hx: Cholecystectomy/Appendectomy (age 42), tonsilectomy (as child), skin cancer removal (date uncertain, within last 2 years), ORIF L femur with IM nail on 08/28, x1 FHx: non-contributory SHx: Former smoker, ~daily alcohol use (glass of wine with dinner), denies illicits PMD: Dr. Lay Review of Systems - Constitutional Constitutional: Fatigue (mild generalized faitigue/weakness today), Weakness ( mild generalized faitigue/weakness today). absent: Chills, Fever, Headache - EENT Eyes: absent: Blurred Vision, Change in Vision, Loss of Vision Ears: absent: Disequilibrium, Dizziness Nose/Mouth/Throat: Neck Pain (acute onset today, left lateral to vertebrae, no pain at rest but acutely painful with head movement, no radiation). absent: Dysphagia (tolerating PO fluid intake, has not yet attempted PO food intake), Sore Throat - Cardiovascular Cardiovascular: absent: Chest Pain, Diaphoresis, Dyspnea, Irregular Heart Rhythm , Pain Radiating to Arm/Neck/Jaw (neck pain with movement, no radiation, not associated with chest or extremity pain), Lightheadedness, Palpitations, Rapid Heart Rate, Syncope - Respiratory Respiratory: absent: Cough, Dyspnea, Wheezing, Pain on Inspiration - Gastrointestinal Gastrointestinal: Change in Bowel Habits (no BM since ORIF on 08/28, prior to fall and procedure had regular BM daily; still passing flatus). absent: Abdominal Pain, Bloating, Coffee Ground Emesis, Constipation, Cramping, Diarrhea , Excessive Flatus, Fecal Incontinence, Hematemesis, Hematochezia, Loose Stools , Melena, Vomiting - Genitourinary Genitourinary: Other (no sense of incomplete emptying). absent: Difficulty Urinating, Dysuria, Flank Pain, Hematuria, Urinary Incontinence, Urinary Frequency - Musculoskeletal Musculoskeletal: Joint Swelling (some swelling at L hip post ORIF, no new swelling, no R LE swelling), Neck Pain (pain left-lateral of vertebral column with head movement, no pain at rest). absent: Numbness, Radiating Pain into Limb - Integumentary Integumentary: absent: Bleeding Lesions, Pruritus, Rash, Skin Pain - Neurological Neurological: Weakness (mild generalized faitigue/weakness today). absent: Disequilibrium, Dizziness, Numbness, Focal Weakness, Headaches, Loss of Vision, Sensory Deficit, Syncope, Vertigo, Other Visual Disturbances - Psychiatric Psychiatric: Anxiety (mild anxiety relating to condition, concern that she will not be able to recover and return to her regular routine) - Endocrine Endocrine: Fatigue (mild generalized faitigue/weakness today). absent: Palpitations Past Patient History - Tetanus Immunizations Tetanus Immunization: Unknown - Past Social History Smoking Status: Former Smoker - HEENT Hx Cataracts: Yes - HEMATOLOGICAL/ONCOLOGICAL Hx Blood Transfusions: No - INTEGUMENTARY Hx Melanoma: Yes (removed) - MUSCULOSKELETAL/RHEUMATOLOGICAL Hx Falls: Yes Hx Osteoporosis: Yes - PSYCHIATRIC Hx Anxiety: No - SURGICAL HISTORY Hx Surgeries: Yes (tonsillectomy) - ANESTHESIA Hx Anesthesia Reactions: No Hx Malignant Hyperthermia: No Meds Allergies/Adverse Reactions: Allergies Allergy/AdvReac Type Severity Reaction Status Date / Time No Known Allergies Allergy Verified 08/27/16 06:40 - Medications Medications: Current Medications Alprazolam (Xanax) 0.25 mg PO BID PRN; Protocol PRN Reason: Anxiety Stop: 09/05/16 10:01 Last Admin: 08/29/16 10:01 Dose: 0.25 mg Enoxaparin Sodium (Lovenox) 40 mg SC DAILY DANA PRN Reason: Protocol Last Admin: 08/30/16 09:40 Dose: 40 mg Hydromorphone HCl (Dilaudid) 0.5 mg IVP Q15M PRN PRN Reason: Pain, moderate (4-7) Last Admin: 08/28/16 11:12 Dose: 0.5 mg Hydromorphone HCl (Dilaudid) 0.5 mg IVP Q4H PRN PRN Reason: Pain, moderate (4-7) Last Admin: 08/28/16 15:27 Dose: 0.5 mg Sodium Chloride (Sodium Chloride 0.9%) 1,000 mls @ 40 mls/hr IV .Q24H DANA Morphine Sulfate (Morphine) 2 mg IVP Q3 PRN PRN Reason: Pain, moderate (4-7) Last Admin: 08/30/16 13:29 Dose: 2 mg Ondansetron HCl (Zofran Inj) 4 mg IVP Q4H PRN PRN Reason: Nausea/Vomiting Last Admin: 08/30/16 10:26 Dose: 4 mg Zolpidem Tartrate (Ambien) 5 mg PO HS PRN; Protocol PRN Reason: Insomnia Last Admin: 08/29/16 22:56 Dose: 5 mg Physical Exam - Constitutional Appears: Well, Non-toxic, No Acute Distress - Head Exam Head Exam: ATRAUMATIC, NORMAL INSPECTION, NORMOCEPHALIC - Eye Exam Eye Exam: EOMI, Normal appearance, PERRL. absent: Conjunctival injection, Scleral icterus Pupil Exam: NORMAL ACCOMODATION, PERRL. absent: Fixed, Irregular, Unequal - ENT Exam ENT Exam: Mucous Membranes Moist, Normal Exam. absent: Mucous Membranes Dry - Neck Exam Neck exam: Positive for: Tenderness (tenderness along muscles left lateral to cervical vertebral column, not tender to palpation but tight musculature, tender with neck movement with and without palpation). Negative for: Full Rom ( voluntarily restricted 2/2 pain with movement, passive movement intact), Lymphadenopathy - Respiratory Exam Respiratory Exam: Clear to Auscultation Bilateral, NORMAL BREATHING PATTERN. absent: Accessory Muscle Use, Chest Wall Tenderness, Decreased Breath Sounds, Prolonged Expiratory Phase, Rales, Rhonchi, Wheezes, Respiratory Distress, Stridor - Cardiovascular Exam Cardiovascular Exam: REGULAR RHYTHM, RRR, +S1, +S2. absent: Bradycardia, Tachycardia, Diastolic murmur, Irregular Rhythm, JVD, +S4, Systolic Murmur - GI/Abdominal Exam GI & Abdominal Exam: Normal Bowel Sounds, Soft. absent: Diminished Bowel Sounds , Distended, Firm, Guarding, Hernia, Hyperactive Bowel Sounds, Hypoactive Bowel Sounds, Mass, Pulsatile Mass, Rigid, Tenderness - Rectal Exam Rectal Exam: Deferred - Extremities Exam Extremities exam: Positive for: joint swelling (some swelling at left hip, consistent with prior ORIF, swelling at and around surgical/bandaged site, no acute erythema or hematoma noted, not diffusely swollen/assymetrical as compared to the R hip), pedal pulses present (+2 dorsalis pedis and femoral pulses bilaterally). Negative for: full ROM (limited ROM assessment 2/2 holding LLE still 2/2 pain; bilateral foot ROM intact and appropriate), pedal edema Additional comments: tenderness along left lateral hip and inferiorly, tender at and immediately adjacent to bandaged site, no calf tenderness bilaterally No tenderness at L femoral pulse region or adjacent - Neurological Exam Neurological exam: Alert, CN II-XII Intact, Oriented x3 Additional comments: Sensory intact and equal bilaterally in LE at all tested sites bilateral plantar reflexes intact - Psychiatric Exam Psychiatric exam: Anxious (mild anxiety 2/2 condition and concerns regarding how well she will rehab/resume normal routine), Normal Affect - Skin Skin Exam: Dry, Intact (except for bandaged surgical site as noted in extremities exam), Normal Color, Warm Additional comments: no cold to palpation extremities, no acute erythematous sites Results - Vital Signs Recent Vital Signs: Last Vital Signs Temp 98.7 F 08/30/16 18:05 Pulse 86 08/30/16 18:05 Resp 20 08/30/16 18:05 BP 131/53 L 08/30/16 18:05 Pulse Ox 95 08/30/16 16:14 - Labs Result Diagrams: 08/30/16 15:50 08/30/16 08:28 Labs: Laboratory Results - last 24 hr 08/30/16 08/30/16 08/30/16 08:28 08:28 10:20 WBC 8.4 RBC 2.35 L Hgb 7.2 L Hct 20.9 L* MCV 88.9 MCH 30.6 MCHC 34.4 RDW 14.6 H Plt Count 132 MPV 10.7 Gran % Lymph % (Auto) [place] % (Auto) Eos % (Auto) Baso % (Auto) Gran # Lymph # [place] # Eos # Baso # Sodium 138 Potassium 3.4 L Chloride 103 Carbon Dioxide 30 Anion Gap 8 L BUN 6 L Creatinine 0.7 Est GFR ( Amer) > 60 Est GFR (Non-Af Amer) > 60 Random Glucose 92 Calcium 7.6 L Total Bilirubin 0.6 AST 55 H ALT 51 Alkaline Phosphatase 47 Total Protein 4.9 L Albumin 2.4 L Globulin 2.5 Albumin/Globulin Ratio 1.0 L Blood Type A NEGATIVE Antibody Screen Positive Antibody Identification Cancelled Crossmatch See Detail BBK History Checked Patient has bt 08/30/16 15:50 WBC 8.2 RBC 2.13 L Hgb 6.5 L* Hct 18.8 L* MCV 88.3 MCH 30.5 MCHC 34.6 RDW 14.1 Plt Count 132 MPV 10.3 Gran % 60.4 Lymph % (Auto) 22.2 [place] % (Auto) 16.6 H Eos % (Auto) 0.6 L Baso % (Auto) 0.2 Gran # 4.96 Lymph # 1.8 [place] # 1.4 H Eos # 0.1 Baso # 0.02 Sodium Potassium Chloride Carbon Dioxide Anion Gap BUN Creatinine Est GFR ( Amer) Est GFR (Non-Af Amer) Random Glucose Calcium Total Bilirubin AST ALT Alkaline Phosphatase Total Protein Albumin Globulin Albumin/Globulin Ratio Blood Type Antibody Screen Antibody Identification Crossmatch BBK History Checked Assessment & Plan - Assessment and Plan (Free Text) Assessment: This is a 75 yo F s/p L-hip repair (POD #2) who we were consulted for due to repeated Hgb drops requiring transfusion. She initially presented to the hospital with L-hip/femoral fracture 2/2 mechanical fall (slipped in shower , denies head trauma or LOC). She was seen for recurring Hgb drop requiring transfusion, s/p L ORIF with nail POD #2. Plan: Neuro: -awake and alert, appropriate mentation -muscle strength testing of upper limbs equal and appropriate, movement of B/L feet equal and appropriate -voluntarily restricting movement of LLE 2/2 pain, but sensation intact and equal to RLE, and L plantar reflex intact triggering movement of LLE -PT/OT following, out of bed to chair yesterday for several hours -continue to monitor Pulm: -Satting well on room air -Conservative O2 management, no indication for supplemental O2 at this time -Continue to monitor, goal is SaO2 > 90% -no signs/sx consistent with DVT/PE, no dyspnea on ROS or on exam, but at increased risk 2/2 primarily bed-bound state (post-op) and recent hip fracture and surgical repair; continue DVT ppx Cardio: -RRR on exam, persistently hemodynamically stable despite anemic state, does not appear volume depleted -continue gentle hydration with 40cc/hr IVF NS, PO fluids as tolerated -Hgb from 7.4 to 9.0 s/p 2 units pRBCs post-op, down to 7.2 and then 6.5 today; transfusing 1 of 2 units pRBCs at time of exam; f/u H&H after 2nd unit transfuses, H&H q6 -No LLE hematoma or swelling/pulselessness consistent with compartment syndrome , so less likely bleeding into LLE, may have retroperitoneal bleed so will obtain CT abd/pelvis -Coags ordered, f/u -Persistent Hgb drop concerning for possible bleed, so avoid systemic AC, but given risk for DVT post hip fracture and surgery, would continue with Lovenox 40mg SC daily; if Hgb continues to drop despite repeat transfusion with no clear source of bleeding, would consider stopping Lovenox at that time -Cardio (Dr. Hackett) following, appreciate all recs GI: -Regular diet, as per patient only tolerating PO fluids, no appetite for solids -No BM since ORIF procedure, but passing regular flatus, no straining or sense of constipation; Dulcolax x1 ordered by primary -Protonix for GI ppx -GI (Dr. Moss) following, appreciate all recs Renal: -Making clear yellow urine, no hematuria -Cr consistently 0.7, stable, continue to monitor -Monitor and replete electrolytes as needed; K repleted by primary, pseudohypocalcemia 2/2 low albumin (corrects to normal range) -Avoid nephrotoxic drugs as feasible -maintain euvolemia and euglycemia Heme: -Hgb from 7.4 to 9.0 s/p 2 units pRBCs post-op, down to 7.2 and then 6.5 today; transfusing 1 of 2 units pRBCs at time of exam; f/u H&H after 2nd unit transfuses, H&H q6 -No LLE hematoma or swelling/pulselessness consistent with compartment syndrome , so less likely bleeding into LLE, may have retroperitoneal bleed so will obtain CT abd/pelvis to assess -Coags ordered, f/u -Persistent Hgb drop concerning for possible bleed, so avoid systemic AC, but given risk for DVT post hip fracture and surgery, would continue with Lovenox 40mg SC daily; if Hgb continues to drop despite repeat transfusion with no clear source of bleeding, would consider stopping Lovenox at that time -Heme-onc (Dr. Emery) following, appreciate all recs ID: -no leukocytosis, afebrile -continue to monitor -no indication for antibiotics at this time MSK: -POD #2 ORIF L femur with IM nail -Ortho (Dr. Sotelo) consulted, appreciate all recs -Neck pain on exam likely MSK in nature; taut/spastic muscles left-lateral of cervical vertebra on exam, will give 1x Valium for muscle relaxation Psych: -continue PRN Xanax for anxiety Dispo: On Med-surg, pending transfer to tele for closer monitoring, pending f/u H&H post transfusion, pending CT abd/pelvis FEN: Regular diet, IVF NS 40cc/hr Access: Peripheral IV Consults: Ortho, GI, Heme-onc, ICU, Cardio Ppx: Protonix for GI, Lovenox for DVT At this time, patient would benefit most from transfer to telemetry for closer monitoring and f/u. We also recommend a CT abd/pelvis w/o contrast to r/o possible retroperitoneal hemorrhage. We will f/u patient on telemetry, and if condition worsens, we will transfer to ICU for more aggressive measures. Thank you for this consult. Plan discussed with patient and family at bedside, in agreement. Attending ( Dr. Mars) discussed with patient's primary (Dr. Lay), in agreement with plan. Patient seen, examined, and discussed with attending, Dr. Mars. - Date & Time Date: 08/30/16 Time: 20:50
--- NOTE | 2016-08-30 21:41 | CT ---
EXAM: CT Abdomen and Pelvis Without Intravenous Contrast CLINICAL HISTORY: 75 years old, female; Abnormal findings; Abnormal lab test; Other: Hgb drops; Prior surgery; Surgery date: 3-7 days post-operative; Surgery type: Left hip; Additional info: Hgb drops S/P hip repair R/O retroperitoneal bleed TECHNIQUE: Axial computed tomography images of the abdomen and pelvis without intravenous contrast. This CT exam was performed using one or more of the following dose reduction techniques: automated exposure control, adjustment of the mA and/or kV according to patient size, and/or use of iterative reconstruction technique. Coronal and sagittal reformatted images were created and reviewed. EXAM DATE/TIME: 08/30/2016 7:08 PM COMPARISON: Prior left hip radiographs of 08/27/2016 FINDINGS: LOWER THORAX: Small left pleural effusion. Dense septum sign noted in the heart, a finding which can be seen with anemia. ABDOMEN: LIVER: No acute abnormality of the liver identified. GALLBLADDER AND BILE DUCTS: Gallbladder is not seen, and may be contracted or surgically absent. PANCREAS: No CT evidence of acute pancreatitis. SPLEEN: No acute abnormality of the spleen identified. ADRENALS: No acute abnormality of the adrenal glands identified. KIDNEYS AND URETERS: Areas of fluid density in the renal pelvis on the left, most likely representing multiple peripelvic renal cysts given the appearance. No evidence of significant hydroureter. No renal or ureteral stones seen. STOMACH AND BOWEL: No acute abnormality of the stomach or duodenum identified. No evidence of small bowel obstruction. No acute abnormality of the colon identified. APPENDIX: Normal appendix is not seen, however, there are no significant inflammatory changes visualized in the expected location of the appendix to suggest appendicitis. Recommend clinical correlation. PELVIS: BLADDER: Air in the bladder lumen, presumably iatrogenic. Recommend clinical correlation. REPRODUCTIVE:No acute abnormality of the reproductive organs is seen. No acute abnormality of the uterus identified. No evidence of large adnexal masses. ABDOMEN and PELVIS: INTRAPERITONEAL SPACE: No evidence of free intraperitoneal air or fluid. RETROPERITONEAL SPACE: Small amount of fluid in the pelvic retroperitoneal space. No evidence of a large retroperitoneal hematoma. BONES/JOINTS: Markedly comminuted fracture of the left proximal femur again seen. There is an intramedullary octavio and screw device in the left proximal femur. Multiple displaced fracture fragments are again seen. Multiple chronic-appearing vertebral compression fractures. SOFT TISSUES: Diffuse edema and swelling of the left hip, upper thigh, gluteal, and pelvic musculature. This involves the deep left pelvic musculature, specifically the left iliacus and piriformis muscles. The edematous muscles have a CT attenuation less than expected for acute hemorrhage on this unenhanced exam. Multiple foci of soft tissue air are seen, located in the left upper thigh, hip, gluteal, and deep left pelvic soft tissues. There is diffuse subcutaneous edema in the left abdominal and pelvic wall soft tissues laterally. No definite large, measurable acute soft tissue hematoma or intramuscular hematoma. VASCULATURE: No evidence of abdominal aortic aneurysm. No evidence of periaortic hemorrhage. IMPRESSION: - Diffuse edema and swelling of the left deep pelvic, hip, upper thigh, and gluteal musculature. This could be due to resolving intramuscular hemorrhage. No evidence of a large acute soft tissue hematoma. - Small amount of fluid in the pelvic retroperitoneal space, with no evidence of a large retroperitoneal hematoma. - Moderate soft tissue air near the recent left hip surgery site, which is presumably post operative in etiology. - Markedly comminuted fracture of the left proximal femur, with a metallic intramedullary octavio and screw fixation device in place. Multiple displaced fracture fragments are again seen. - Small left pleural effusion. - See above for remaining findings.
[2016-08-30] MEDS: HYDROmorphone 0.5 mg/0.5 ml ISec IVP PRN (22:52)
[2016-08-31 00:37] LABS: HEMATOCRIT 28.7 % (36.0-48.0)
[2016-08-31 03:56] LABS: HEMATOCRIT 28.6 % (36.0-48.0); MEAN CELL VOLUME 87.5 fL (80.0-105.0); WHITE BLOOD COUNT 9.5 [, 10^3/ul] (4.5-11.0)
[2016-08-31 03:57] LABS: MEAN CORPUSCULAR HEMOGLOBIN 29.7 pg (25.0-35.0); MEAN CORPUSCULAR HGB CONC 33.9 g/dl (31.0-37.0); MEAN PLATELET VOLUME 10.4 fl (7.0-11.0); RED CELL DISTRIBUTION WIDTH 14.1 % (11.5-14.5)
[2016-08-31 04:03] LABS: ALKALINE PHOSPHATASE 68 U/L (38-133); ALT/SGPT 79 U/L (7-56); AST/SGOT 99 U/L (15-39); BILIRUBIN,TOTAL 1.8 mg/dL (0.2-1.3); BLOOD UREA NITROGEN 8 mg/dL (7-21); CALCIUM 7.7 mg/dL (8.4-10.5); CARBON DIOXIDE 32 mmol/L (21-33); CHLORIDE 98 mmol/L (98-107); GFR AFRICAN-AMERICAN > 60; GLUCOSE,RANDOM 110 mg/dL (70-110); POTASSIUM 3.1 mmol/L (3.6-5.0); SODIUM 135 mmol/L (132-148); TOTAL PROTEIN 5.5 g/dL (5.8-8.3)
[2016-08-31 04:07] LABS: INR 0.94 (0.93-1.08)
[2016-08-31] MEDS: Morphine 2 mg/ml ISec IVP PRN (05:33)
[2016-08-31 05:59] VITALS: O2SAT 95
[2016-08-31] MEDS: HYDROmorphone 0.5 mg/0.5 ml ISec IVP PRN ×2 (07:52→12:14)
--- NOTE | 2016-08-31 08:26 | CP.PCM.CON ---
History of Present Illness - History of Present Illness History of Present Illness: Asked by Dr. Lay for a GI consultation on this patient. 75 year old female without significant past medical history who presents to hospital following mechanical fall while getting in bathtub 3 days ago. She was found to have a L femoral fracture and underwent surgical intervention. GI called for evaluation of anemia post operatively. She is seen resting in bed comfortably and complains of left sided hip pain and nausea. She denies abdominal pain, vomiting, fever/chills, weight loss, rectal bleeding, melena, or change in bowel habits. She typically has normal formed bowel movements daily, though has not had a bowel movement since arrival to hospital. No prior endoscopic evaluation. Social history: non-smoker, no ETOH use Family history: sister (alzheimers) Review of Systems - Review of Systems Review of Systems: - All other comprehensive 12 point review of systems performed, negative - Cardiovascular Cardiovascular: absent: Acrocyanosis, Chest Pain, Chest Pain at Rest, Chest Pain with Activity, Claudication, Diaphoresis, Dyspnea, Dyspnea on Exertion, Edema, Irregular Heart Rhythm, Pain Radiating to Arm/Neck/Jaw, Leg Edema, Leg Ulcers, Lightheadedness, Orthopnea, Palpitations, Paroxysmal Nocturnal Dyspnea, Pedal Edema, Radiating Pain, Rapid Heart Rate, Slow Heart Rate, Syncope, Other - Respiratory Respiratory: absent: Cough, Dyspnea, Hemoptysis, Dyspnea on Exertion, Wheezing, Snoring, Stridor, Pain on Inspiration, Chest Congestion, Excessive Mucous Production, Change in Mucous Color, Pain with Coughing, Other - Gastrointestinal Gastrointestinal: Constipation, Nausea - Musculoskeletal Musculoskeletal: Radiating Pain into Limb - Neurological Neurological: Dizziness Past Patient History - Tetanus Immunizations Tetanus Immunization: Unknown - Past Social History Smoking Status: Former Smoker - HEENT Hx Cataracts: Yes - HEMATOLOGICAL/ONCOLOGICAL Hx Blood Transfusions: No - INTEGUMENTARY Hx Melanoma: Yes (removed) - MUSCULOSKELETAL/RHEUMATOLOGICAL Hx Falls: Yes Hx Osteoporosis: Yes - PSYCHIATRIC Hx Anxiety: No - SURGICAL HISTORY Hx Surgeries: Yes (tonsillectomy) - ANESTHESIA Hx Anesthesia Reactions: No Hx Malignant Hyperthermia: No Meds Allergies/Adverse Reactions: Allergies Allergy/AdvReac Type Severity Reaction Status Date / Time No Known Allergies Allergy Verified 08/27/16 06:40 - Medications Medications: Current Medications Alprazolam (Xanax) 0.25 mg PO BID PRN; Protocol PRN Reason: Anxiety Stop: 09/05/16 10:01 Last Admin: 08/31/16 07:51 Dose: 0.25 mg Enoxaparin Sodium (Lovenox) 40 mg SC DAILY [facility] PRN Reason: Protocol Last Admin: 08/30/16 09:40 Dose: 40 mg Hydromorphone HCl (Dilaudid) 0.5 mg IVP Q15M PRN PRN Reason: Pain, moderate (4-7) Last Admin: 08/28/16 11:12 Dose: 0.5 mg Hydromorphone HCl (Dilaudid) 0.5 mg IVP Q4H PRN PRN Reason: Pain, moderate (4-7) Last Admin: 08/31/16 07:52 Dose: 0.5 mg Sodium Chloride (Sodium Chloride 0.9%) 1,000 mls @ 40 mls/hr IV .Q24H [facility] Potassium Chloride (Potassium Chloride 10 Meq/100 Ml) 10 meq in 100 mls @ 100 mls/hr IVPB Q2H [facility] Stop: 08/31/16 11:14 Methocarbamol (Robaxin) 750 mg PO QID [facility] Morphine Sulfate (Morphine) 2 mg IVP Q3 PRN PRN Reason: Pain, moderate (4-7) Last Admin: 08/31/16 05:33 Dose: 2 mg Ondansetron HCl (Zofran Inj) 4 mg IVP Q4H PRN PRN Reason: Nausea/Vomiting Last Admin: 08/30/16 20:17 Dose: 4 mg Pantoprazole Sodium (Protonix Inj) 40 mg IVP DAILY [facility] Zolpidem Tartrate (Ambien) 5 mg PO HS PRN; Protocol PRN Reason: Insomnia Last Admin: 08/29/16 22:56 Dose: 5 mg Physical Exam - Constitutional Appears: Non-toxic, No Acute Distress - Head Exam Head Exam: NORMAL INSPECTION - Eye Exam Eye Exam: EOMI, Normal appearance - ENT Exam ENT Exam: Mucous Membranes Moist - Respiratory Exam Respiratory Exam: Clear to Auscultation Bilateral - Cardiovascular Exam Cardiovascular Exam: REGULAR RHYTHM, +S1, +S2 - GI/Abdominal Exam GI & Abdominal Exam: Normal Bowel Sounds, Soft Additional comments: non tender to palpation in four quadrants no palpable hepato/splenomegaly - Extremities Exam Extremities exam: Positive for: normal inspection - Neurological Exam Neurological exam: Alert, CN II-XII Intact, Oriented x3, Reflexes Normal - Psychiatric Exam Psychiatric exam: Normal Affect, Normal Mood - Skin Skin Exam: Dry, Intact, Normal Color, Warm Results - Vital Signs Recent Vital Signs: Last Vital Signs Temp 98.2 F 08/31/16 05:57 Pulse 83 08/31/16 05:57 Resp 20 08/31/16 05:57 BP 113/59 L 08/31/16 05:57 Pulse Ox 95 08/31/16 05:57 - Labs Result Diagrams: 08/31/16 03:30 08/31/16 03:30 Labs: Laboratory Results - last 24 hr 08/30/16 08/30/16 08/30/16 08:28 08:28 10:20 WBC 8.4 RBC 2.35 L Hgb 7.2 L Hct 20.9 L* MCV 88.9 MCH 30.6 MCHC 34.4 RDW 14.6 H Plt Count 132 MPV 10.7 Gran % Lymph % (Auto) [place] % (Auto) Eos % (Auto) Baso % (Auto) Gran # Lymph # [place] # Eos # Baso # PT INR APTT Sodium 138 Potassium 3.4 L Chloride 103 Carbon Dioxide 30 Anion Gap 8 L BUN 6 L Creatinine 0.7 Est GFR ( Amer) > 60 Est GFR (Non-Af Amer) > 60 Random Glucose 92 Calcium 7.6 L Total Bilirubin 0.6 AST 55 H ALT 51 Alkaline Phosphatase 47 Total Protein 4.9 L Albumin 2.4 L Globulin 2.5 Albumin/Globulin Ratio 1.0 L Blood Type A NEGATIVE Antibody Screen Positive Antibody Identification Cancelled Crossmatch See Detail BBK History Checked Patient has bt 08/30/16 08/31/16 08/31/16 15:50 00:25 03:30 WBC 8.2 9.5 RBC 2.13 L 3.27 L Hgb 6.5 L* 9.8 L 9.7 L Hct 18.8 L* 28.7 L 28.6 L MCV 88.3 87.5 MCH 30.5 29.7 MCHC 34.6 33.9 RDW 14.1 14.1 Plt Count 132 143 MPV 10.3 10.4 Gran % 60.4 Lymph % (Auto) 22.2 [place] % (Auto) 16.6 H Eos % (Auto) 0.6 L Baso % (Auto) 0.2 Gran # 4.96 Lymph # 1.8 [place] # 1.4 H Eos # 0.1 Baso # 0.02 PT INR APTT Sodium Potassium Chloride Carbon Dioxide Anion Gap BUN Creatinine Est GFR ( Amer) Est GFR (Non-Af Amer) Random Glucose Calcium Total Bilirubin AST ALT Alkaline Phosphatase Total Protein Albumin Globulin Albumin/Globulin Ratio Blood Type Antibody Screen Antibody Identification Crossmatch BBK History Checked 08/31/16 08/31/16 03:30 03:30 WBC RBC Hgb Hct MCV MCH MCHC RDW Plt Count MPV Gran % Lymph % (Auto) [place] % (Auto) Eos % (Auto) Baso % (Auto) Gran # Lymph # [place] # Eos # Baso # PT 10.1 INR 0.94 APTT 28.0 Sodium 135 Potassium 3.1 L Chloride 98 Carbon Dioxide 32 Anion Gap 8 L BUN 8 Creatinine 0.7 Est GFR ( Amer) > 60 Est GFR (Non-Af Amer) > 60 Random Glucose 110 Calcium 7.7 L Total Bilirubin 1.8 H AST 99 H ALT 79 H Alkaline Phosphatase 68 Total Protein 5.5 L Albumin 2.7 L Globulin 2.8 Albumin/Globulin Ratio 1.0 L Blood Type Antibody Screen Antibody Identification Crossmatch BBK History Checked Assessment & Plan - Assessment and Plan (Free Text) Assessment: L displaced femoral fracture s/p mechanical fall, s/p ORIF Anemia, normocytic CT imaging reviewed by me showing diffuse edema of L pelvic, hip, thigh suggestive of resolving intramuscular hemorrhage Plan: - Diet as tolerated - H/H stable s/p PRBC transfusion, continue to monitor - Obtain stool occult blood - Pain control, follow up orthopedic surgical recommendations - Bowel regimen for management of constipation - No planned inpatient GI intervention, patient would benefit from outpatient colonoscopy (patient has never had) following resolution of acute L femur fracture. Will continue to monitor patient clinical course.
--- NOTE | 2016-08-31 09:05 | PN ---
DATE: 08/31/2016 I saw her in bed today. She is comfortable. Her neck is still hurting her. It is very stiff and te nder, a lot of spasm. I am going to get an x-ray of her neck. I am going to give her some Robaxin. I need to get her out of bed to chair daily. She needs to go to subacute rehabilitation. Waiting f or authorization from her insurance company. She also had another low hemoglobin. It happened twice . Transfused her finally yesterday. She is better with color, a little strength, but still very wea k. PHYSICAL EXAMINATION: VITAL SIGNS: She has 98.2 temp, 83 pulse, 113/59 blood pressure, 20 respiratory rate, 95% O2 sat on room air. HEENT: Head is atraumatic, normocephalic. Much better color in her face. Throat is moist. HEART: Regular rate. LUNGS: Decreased breath sounds, but clear. ABDOMEN: Soft. EXTREMITIES: No edema. She is currently on Ambien, Dilaudid, Lovenox, morphine, potassium replacement, Protonix, Robaxin for the neck spasm, IV fluids, Xanax and Zofran. LABORATORY DATA: The last was a 135 sodium, potassium 3.1. I gave her 2 K riders of 10. BUN is 8, creatinine 0.7, GFR is greater than 60, sugar is 110, calcium 7.7, total bili is 1.8, AST is 99, ALT is 79, alkaline phosphatase 68, total protein is 5.5. INR is 0.94. White count is 9.5, hemoglobin i s up to 9.7, 28.6 hematocrit with 143 platelets. I am hoping the hemoglobin stays where it is and does not drop. She did have a CAT scan of the abdom en and pelvis looking for any kind of reason for a bleed and it showed some interesting answers, diff use edema and swelling of the left deep pelvic hip, under upper thigh and gluteal musculature. This could be due to resolving intramuscular hemorrhage. So, apparently the muscles were hemorrhaging and I think they have now stopped. No evidence of large acute soft tissue hematoma. The rest are surgi christi related findings. I am hoping no more bleeding in the hip. I am hoping that it calmed down. We are going to check her labs tomorrow, get an x-ray of the neck to make sure the neck is okay. She did fall. That is what brought her in. We are going to replace the potassium, give her Robaxin to help the muscle spasm and hopefully we will get her to subacute rehabilitation shortly. She is here for a fall, fractured hip with open reduction internal fixation. Anand Lay DO cc: [id number] TT: 08/31/2016 09:04:27 Confirmation # [id number] Dictation # [id number] en
[2016-08-31] MEDS: Enoxaparin 40 mg Syringe SC SCH (10:06)
[2016-08-31] MEDS: Methocarbamol 500 MG Tab PO SCH ×4 (10:06→22:03)
[2016-08-31] MEDS: POLYETHYLENE GLYCOL 3350 17 GM/Dose PACKET PO SCH (10:06)
--- NOTE | 2016-08-31 10:20 | CP.PCM.PN ---
Subjective - Date & Time of Evaluation Date of Evaluation: 08/30/16 Time of Evaluation: 19:00 - Subjective Subjective: pt is lying comforably in bed. Denies headaches. Pain well controlled. Denies significant pain in thigh Objective - Vital Signs/Intake and Output Vital Signs (last 24 hours): Temp Pulse Resp BP Pulse Ox 98.2 F 83 20 113/59 L 95 08/31/16 05:57 08/31/16 05:57 08/31/16 05:57 08/31/16 05:57 08/31/16 05:57 Intake and Output: 08/31/16 08/31/16 06:59 18:59 Intake Total 1410 Output Total 750 Balance 660 - Medications Medications: Current Medications Alprazolam (Xanax) 0.25 mg PO BID PRN; Protocol PRN Reason: Anxiety Stop: 09/05/16 10:01 Last Admin: 08/31/16 07:51 Dose: 0.25 mg Enoxaparin Sodium (Lovenox) 40 mg SC DAILY [facility] PRN Reason: Protocol Last Admin: 08/31/16 10:06 Dose: 40 mg Hydromorphone HCl (Dilaudid) 0.5 mg IVP Q15M PRN PRN Reason: Pain, moderate (4-7) Last Admin: 08/28/16 11:12 Dose: 0.5 mg Hydromorphone HCl (Dilaudid) 0.5 mg IVP Q4H PRN PRN Reason: Pain, moderate (4-7) Last Admin: 08/31/16 07:52 Dose: 0.5 mg Sodium Chloride (Sodium Chloride 0.9%) 1,000 mls @ 40 mls/hr IV .Q24H [facility] Potassium Chloride (Potassium Chloride 10 Meq/100 Ml) 10 meq in 100 mls @ 100 mls/hr IVPB Q2H [facility] Stop: 08/31/16 11:14 Last Admin: 08/31/16 08:14 Dose: 100 mls/hr Methocarbamol (Robaxin) 750 mg PO QID [facility] Last Admin: 08/31/16 10:06 Dose: 750 mg Morphine Sulfate (Morphine) 2 mg IVP Q3 PRN PRN Reason: Pain, moderate (4-7) Last Admin: 08/31/16 05:33 Dose: 2 mg Ondansetron HCl (Zofran Inj) 4 mg IVP Q4H PRN PRN Reason: Nausea/Vomiting Last Admin: 08/31/16 08:19 Dose: 4 mg Pantoprazole Sodium (Protonix Inj) 40 mg IVP DAILY [facility] Last Admin: 08/31/16 10:06 Dose: 40 mg Polyethylene Glycol (Miralax) 17 gm PO DAILY [facility] Last Admin: 08/31/16 10:06 Dose: 17 gm Zolpidem Tartrate (Ambien) 5 mg PO HS PRN; Protocol PRN Reason: Insomnia Last Admin: 08/29/16 22:56 Dose: 5 mg - Labs Labs: 08/31/16 03:30 08/31/16 03:30 PT 10.1 Seconds (9.9-11.8) 08/31/16 03:30 INR 0.94 (0.93-1.08) 08/31/16 03:30 APTT 28.0 Seconds (23.7-30.8) 08/31/16 03:30 - Constitutional Appears: No Acute Distress - Extremities Exam Additional comments: Thigh is soft, compressible. No pain with palpation. dressings dry. distal pulses +2, brisk cap refills. foot warm
--- NOTE | 2016-08-31 10:24 | PN ---
DATE: 08/31/2016 The patient tolerated surgery well, except for her recurrent anemia. PHYSICAL EXAMINATION: VITAL SIGNS: Blood pressure is 113/60, the heart rate is in the 80s. NECK: Negative JVD. LUNGS: Without rales. HEART: Reveals S1, S2. EXTREMITIES: Without edema. Hemoglobin is 9.7 today. Chemistries are essentially unchanged other than a bilirubin of 1.8. IMPRESSION: 1. Status post hip fracture. 2. Status post fall. 3. Recurrent anemia. 4. History of a bundle branch block in the past. Given these findings, the patient is hemodynamically stable. We will need to monitor the hemoglobin carefully. Marcelo Hackett MD cc: [id number] TT: 08/31/2016 10:23:44 Confirmation # [id number] Dictation # [id number] en
[2016-08-31 12:22] LABS: HEMATOCRIT 27.1 % (36.0-48.0)
--- NOTE | 2016-08-31 13:49 | RAD ---
PROCEDURE: Cervical Spine Radiographs. HISTORY: Pain. COMPARISON: None. FINDINGS: BONES: Alignment maintained. No fracture. Dens Intact. DISC SPACES: Normal. SOFT TISSUES: Normal. No prevertebral soft tissue swelling. OTHER FINDINGS: None. IMPRESSION: Normal cervical spine radiographs
[2016-09-01] MEDS: Morphine 2 mg/ml ISec IVP PRN ×2 (01:46→16:41)
[2016-09-01 05:49] VITALS: RESP 18
[2016-09-01 06:09] LABS: HEMATOCRIT 27.7 % (36.0-48.0); MEAN CELL VOLUME 87.7 fL (80.0-105.0); MEAN CORPUSCULAR HEMOGLOBIN 29.4 pg (25.0-35.0); MEAN CORPUSCULAR HGB CONC 33.6 g/dl (31.0-37.0); MEAN PLATELET VOLUME 9.6 fl (7.0-11.0); RED CELL DISTRIBUTION WIDTH 14.2 % (11.5-14.5); WHITE BLOOD COUNT 7.4 [, 10^3/ul] (4.5-11.0)
[2016-09-01 06:28] LABS: ALKALINE PHOSPHATASE 65 U/L (38-133); ALT/SGPT 71 U/L (7-56); AST/SGOT 57 U/L (15-39); BILIRUBIN,TOTAL 1.4 mg/dL (0.2-1.3); BLOOD UREA NITROGEN 10 mg/dL (7-21); CALCIUM 7.9 mg/dL (8.4-10.5); CARBON DIOXIDE 32 mmol/L (21-33); CHLORIDE 100 mmol/L (95-110); GFR AFRICAN-AMERICAN > 60; GLUCOSE,RANDOM 89 mg/dL (70-110); POTASSIUM 3.4 mmol/L (3.6-5.0); SODIUM 136 mmol/L (132-148); TOTAL PROTEIN 5.5 g/dL (5.8-8.3)
--- NOTE | 2016-09-01 08:31 | CON ---
DATE: 09/01/2016 This is a 75-year-old woman with anemia. Cigarettes negative, alcohol negative. The patient says j carlos palacio was in her shower and slipped. She fell up in the air, landed on her hip and came to the Emergency Room where she had a severe fracture of the left femur. Her hemoglobin at that time was on admissio n 7.2 and that went down to 6.5. After transfusion it is at 9.3. I looked at the peripheral smear o n admission. There were no microspherocytes, no increased low polys, no abnormal polys or lymphs. M CV was normal at 89. She denies any change in her bowel habits recently, constipation or diarrhea. PHYSICAL EXAMINATION: SKIN: No petechiae, no bruises. HEENT: Anicteric. NODES: None palpable in the axillary, cervical, supraclavicular or inguinal regions. LUNGS: Clear at present. No vertebral tenderness. HEART: S1, S2. BREASTS: No mass. ABDOMEN: Shows no liver, no spleen, no tenderness, no ascites, no rebound. EXTREMITIES: No edema on the right. The left shows some edema. It is hard. She move it. It seems a little bit of edema on that right hip. CENTRAL NERVOUS SYSTEM: No focal finding. I think at this point she probably lost blood into the fracture area. Her total protein was a little bit low on admission, so I am going to order immunoelectrophoresis, IgG, IgA and IgM, but at this po int, I think we are going to just watch. Hopefully, she will absorb the blood and will increase by i tself. Zacarias Rupert BASS cc: [id number] TT: 09/01/2016 08:30:38 Confirmation # [id number] Dictation # [id number] mn
[2016-09-01] MEDS ORDERED: Potassium Chloride 10 mEq ER Tab PO SCH (08:45)
--- NOTE | 2016-09-01 09:38 | DS ---
POSSIBLE DISCHARGE SUMMARY I saw her resting comfortably in her room. We had a long talk with social insurance administrator. We are trying to get her to acute rehab now. At first, it was subacute, but they recommend acute, which is great because she wants to go to [facility] in 6 weeks. So we are going to try [facility], and I called her sister and discussed it with her sister, but she should be able to leave today if we get the authorization from the insurance. She had a fall, left hip fracture, ORIF. She had anemia, anxiety, and muscle bleed. MEDICATIONS: She is currently on Ambien, Lovenox, MiraLax, morphine, Protonix, Robaxin for the neck pain, which is helping, IV fluids, Xanax, and Zofran. PHYSICAL EXAMINATION: VITAL SIGNS: Temp 97.5, 75 pulse, 113/57 blood pressure, 18 respiratory rate. HEAD: Atraumatic, normocephalic. HEART: Regular rate. LUNGS: Clear to auscultation. ABDOMEN: Soft. EXTREMITIES: No edema. NECK: The neck has got better range of motion and no pain at this time. LABORATORY DATA: She has a 7.4 white count. The hemoglobin is holding at 9.3, hematocrit 27.7. Platelets are 193. She has a 136 sodium, potassium 3.4. I will give her potassium today. I will put her on potassium - K-Dur 20 one daily on a regular dosage. BUN is 10, creatinine 0.6. GFR is greater than 60. Calcium is 7.9. Total bilirubin is 1.4. AST is. ALT is 71, alk phos 65 - all improving, and the protein is 5.5. Overall, she did very well. She is being seen by hematology, surgery, cardiology, GI. I think the bleeding came from the muscle. She should do very well in acute rehab, and I am hoping that she makes it to [facility] in 6 weeks, and there is a normal cervical spine x-ray. Anand Lay DO cc: [id number] TT: 09/01/2016 09:37:25 jn BAYRON
[2016-09-01] MEDS: Methocarbamol 500 MG Tab PO SCH ×2 (09:49→16:42)
[2016-09-01] MEDS: POLYETHYLENE GLYCOL 3350 17 GM/Dose PACKET PO SCH (09:49)
[2016-09-01] MEDS: Enoxaparin 40 mg Syringe SC SCH (09:49)
--- NOTE | 2016-09-01 11:24 | PN ---
DATE: 09/01/2016 The patient is without complaints. PHYSICAL EXAMINATION: VITAL SIGNS: Blood pressure is 113/57, heart rate is in the 70s. NECK: Negative JVD. LUNGS: Without rales. HEART: Reveals S1, S2. EXTREMITIES: Without edema. LABORATORIES: Hemoglobin is 9.3 which is unchanged. The potassium is 3.4. IMPRESSION: 1. Anemia, which is stable post-transfusion. 2. Status post hip fracture. 3. Status post surgery. PLAN: Given these findings, the patient is stable from a cardiac perspective to transfer to [facility]. We will discontinue telemetry today. Marcelo Hackett MD cc: [id number] TT: 09/01/2016 11:23:32 Confirmation # [id number] Dictation # [id number] tn
[2016-09-01 12:30] LABS: IMMUNOGLOBULIN G 421.1 mg/dL (700.0-1600.0)
[2016-09-01 12:31] LABS: IMMUNOGLOBULIN M < 25.0 mg/dL (40.0-230.0)
[2016-09-01 12:32] VITALS: BP 126/68; TEMP 98
[2016-09-01 12:47] LABS: IMMUNOGLOBULIN A 159.6 mg/dL (70.0-400.0)
--- NOTE | 2016-09-01 15:37 | CP.PCM.PN ---
Subjective - Date & Time of Evaluation Date of Evaluation: 09/01/16 Time of Evaluation: 15:34 - Subjective Subjective: RFV: anemia S: No acute events. Possible DC today to [facility]. No bleeding. No nausea/ vomiting, or abdominal pain. Tolerating diet. Objective - Vital Signs/Intake and Output Vital Signs (last 24 hours): Temp Pulse Resp BP Pulse Ox 98 F 81 18 126/68 95 09/01/16 12:00 09/01/16 12:00 09/01/16 12:00 09/01/16 12:00 08/31/16 05:57 Intake and Output: 09/01/16 09/01/16 06:59 18:59 Intake Total 120 600 Output Total 800 400 Balance -680 200 - Medications Medications: Current Medications Alprazolam (Xanax) 0.25 mg PO BID PRN; Protocol PRN Reason: Anxiety Stop: 09/05/16 10:01 Last Admin: 08/31/16 22:03 Dose: 0.25 mg Enoxaparin Sodium (Lovenox) 40 mg SC DAILY [facility] PRN Reason: Protocol Last Admin: 09/01/16 09:49 Dose: 40 mg Sodium Chloride (Sodium Chloride 0.9%) 1,000 mls @ 40 mls/hr IV .Q24H [facility] Methocarbamol (Robaxin) 750 mg PO QID [facility] Last Admin: 09/01/16 09:49 Dose: 750 mg Morphine Sulfate (Morphine) 2 mg IVP Q3 PRN PRN Reason: Pain, moderate (4-7) Last Admin: 09/01/16 01:46 Dose: 2 mg Ondansetron HCl (Zofran Inj) 4 mg IVP Q4H PRN PRN Reason: Nausea/Vomiting Last Admin: 08/31/16 14:45 Dose: 4 mg Pantoprazole Sodium (Protonix Inj) 40 mg IVP DAILY [facility] Last Admin: 09/01/16 09:49 Dose: 40 mg Polyethylene Glycol (Miralax) 17 gm PO DAILY [facility] Last Admin: 09/01/16 09:49 Dose: 17 gm Potassium Chloride (Klor-Con 10) 10 meq PO BRK [facility] Last Admin: 09/01/16 09:49 Dose: 10 meq Zolpidem Tartrate (Ambien) 5 mg PO HS PRN; Protocol PRN Reason: Insomnia Last Admin: 08/29/16 22:56 Dose: 5 mg - Labs Labs: 09/01/16 05:00 09/01/16 05:00 PT 10.1 Seconds (9.9-11.8) 08/31/16 03:30 INR 0.94 (0.93-1.08) 08/31/16 03:30 APTT 28.0 Seconds (23.7-30.8) 08/31/16 03:30 - Constitutional Appears: No Acute Distress - Head Exam Head Exam: ATRAUMATIC, NORMOCEPHALIC - Eye Exam Eye Exam: absent: Scleral icterus - ENT Exam ENT Exam: Mucous Membranes Moist, Normal Oropharynx - Respiratory Exam Respiratory Exam: NORMAL BREATHING PATTERN - Cardiovascular Exam Cardiovascular Exam: REGULAR RHYTHM - GI/Abdominal Exam GI & Abdominal Exam: Soft. absent: Tenderness - Neurological Exam Neurological Exam: Alert, Oriented x3 Assessment and Plan - Assessment and Plan (Free Text) Assessment: 75 year old female admitted with femoral fracture 2/2 fall s/p ORIF also with post operative anemia. 1. Normocytic Anemia 2. Constipation Plan: - no signs of GI bleeding, hgb stable, hemodynamically stable - acute blood loss anemia may be relate to fracture / surgery - Diet as tolerated - Bowel regimen for management of constipation - No urgent inpatient GI intervention warranted, recommend outpatient colonoscopy following recovery from fracture / acute medical issues
[2016-09-01 17:30] VITALS: PULSE 86
[2016-09-02 10:04] LABS: IGG,SERUM 452 mg/dL (694-1618); IGM,SERUM 23 mg/dL (48-271)
--- NOTE | 2016-09-02 16:56 | PQF GENQUE ---
09/02/16 Dr. Lay, Patient had low potassium levels on 08/30, 08/31, and 09/01, treated with potassium chloride. Any additional diagnosis? Thank you. Clarification of your documentation is requested to better reflect the severity of illness and intensity of treatment of your patient. Indicators present [] Specify: [] [] Specify: [] [] Specify: [] [] Specify: [] Location in the medical record that reflects the above clinical findings: [] Treatment Provided: [] PHYSICIAN'S RESPONSE Based on your medical judgment of the clinical indicators outlined above please clarify the following: [] Practitioner response hypokalemia [] If unable to determine, please check the box, sign and date. Present On Admission (POA) Indicator: [] Present at the time of admission [] Not present at the time of admission [] Clinically Undetermined In responding to this query, please exercise your independent professional judgment. The fact that a question is asked does not imply that any particular answer is desired or expected. Thank you for your clarification on this documentation. If you have any questions please call:[ ] * Thank you, [ ] mds coordinator BAYRON
--- NOTE | 2016-09-03 08:45 | PQF GENQUE ---
09/03/16 Dr. Lay, You signed the previous query form on this patient, but I do not see an answer to the question. Patient had low potassium on 08/30, 08/31, and 09/01, treated with potassium chloride. Please indicate if you do or do not want a diagnosis coded for this. Thank you. Clarification of your documentation is requested to better reflect the severity of illness and intensity of treatment of your patient. Indicators present [] Specify: [] [] Specify: [] [] Specify: [] [] Specify: [] Location in the medical record that reflects the above clinical findings: [] Treatment Provided: [] PHYSICIAN'S RESPONSE i added hypokalemia recheck last one Based on your medical judgment of the clinical indicators outlined above please clarify the following: [] Practitioner response [] If unable to determine, please check the box, sign and date. Present On Admission (POA) Indicator: [] Present at the time of admission [] Not present at the time of admission [] Clinically Undetermined In responding to this query, please exercise your independent professional judgment. The fact that a question is asked does not imply that any particular answer is desired or expected. Thank you for your clarification on this documentation. If you have any questions please call:[ ] * Thank you, [ ] digital retoucher BAYRON
== END 2016-09-01 17:47 | DRG 481 ==
LOC: ED 06:35 → ERH 10:02 → 5RSO 10:56 → 2RNO 08-30 23:42
PROVIDERS: ADMIT Family Medicine; ATTEND Family Medicine
PROC: 0QS704Z Reposition Left Upper Femur with Internal Fixation Device, Open Approach (ICD-10-PCS; principal; 2016-08-27 15:00)
PROC: 30233N1 Transfusion of Nonautologous Red Blood Cells into Peripheral Vein, Percutaneous Approach (ICD-10-PCS; 2016-08-28)
DX: S72.22XA Displaced subtrochanteric fracture of left femur, initial encounter for closed fracture (principal); M96.830 Postprocedural hemorrhage of a musculoskeletal structure following a musculoskeletal system procedure; I44.7 Left bundle-branch block, unspecified; I45.4 Nonspecific intraventricular block; D62 Acute posthemorrhagic anemia; W01.0XXA Fall on same level from slipping, tripping and stumbling without subsequent striking against object, initial encounter; W18.2XXA Fall in (into) shower or empty bathtub, initial encounter; Y93.E1 Activity, personal bathing and showering; F41.9 Anxiety disorder, unspecified; K59.00 Constipation, unspecified; M81.0 Age-related osteoporosis without current pathological fracture; Z82.0 Family history of epilepsy and other diseases of the nervous system; Z82.49 Family history of ischemic heart disease and other diseases of the circulatory system; Z85.820 Personal history of malignant melanoma of skin; Z87.891 Personal history of nicotine dependence; Z90.49 Acquired absence of other specified parts of digestive tract; R40.2412 Glasgow coma scale score 13-15, at arrival to emergency department; Z98.49 Cataract extraction status, unspecified eye; M54.2 Cervicalgia; E87.6 Hypokalemia

== ENCOUNTER 2016-10-25 19:00 | Emergency (ER) | payer MEDICARE, OTHER ==
[2016-10-25 19:02] VITALS: BMI 24.9
[2016-10-25 19:06] VITALS: TEMP 97.9
--- NOTE | 2016-10-25 19:37 | ED PDOC ---
Arrival/HPI - General Chief Complaint: Lower Extremity Problem/Injury Time Seen by Provider: 10/25/16 19:04 Historian: Patient - History of Present Illness Narrative History of Present Illness (Text): 10/25/16 19:40 A 76 year old female, with a history of left femur fracture, s/p ORIF with IM nail, brought in by EMS complaining of left groin pain that developed this afternoon. Patient reports difficulty ambulating on walker or putting pressure on left leg. Patient took two tylenol and a xanax today. Patient called visiting nurse who told her to come to emergency department for an xray. Patient reports she has an appointment with Dr. Hogan (surgeon) in two weeks. Denies any shortness of breath, chest pain, abdominal pain, nausea, vomiting, fever, dysuria or any other complaints at this time. PMD: Dr. Maradiaga Time/Duration: 4-6 hours Symptom Onset: Sudden Symptom Course: Unchanged Activities at Onset: Rest Context: Home Past Medical History - Provider Review Nursing Documentation Reviewed: Yes - Tetanus Immunization Tetanus Immunization: Unknown - Past Medical History Past Medical History: No Previous - Cardiac Hx Cardiac Disorders: No - Pulmonary Hx Respiratory Disorders: No - Neurological Hx Neurological Disorder: No - HEENT Hx HEENT Disorder: Yes Hx Cataracts: Yes - Renal Hx Renal Disorder: No - Endocrine/Metabolic Hx Endocrine Disorders: No - Hematological/Oncological Hx Blood Disorders: No Hx Blood Transfusions: No - Integumentary Hx Dermatological Disorder: Yes Hx Melanoma: Yes (removed) - Musculoskeletal/Rheumatological Hx Musculoskeletal Disorders: Yes Hx Falls: Yes Hx Osteoporosis: Yes - Gastrointestinal Hx Gastrointestinal Disorders: No - Genitourinary/Gynecological Hx Genitourinary Disorders: No - Psychiatric Hx Psychophysiologic Disorder: No Hx Anxiety: No Hx Substance Use: No - Surgical History Hx Cholecystectomy: Yes Hx Eye Surgery: Yes Hx Orthopedic Surgery: Yes (left femur 08/2016) - Anesthesia Hx Anesthesia Reactions: No Hx Malignant Hyperthermia: No - Suicidal Assessment Feels Threatened In Home Enviroment: No Family/Social History - Physician Review Nursing Documentation Reviewed: Yes Family/Social History: No Known Family HX Smoking Status: Former Smoker Hx Alcohol Use: Yes Frequency of alcohol use: Socially Hx Substance Use: No Hx Substance Use Treatment: No Allergies/Home Meds Allergies/Adverse Reactions: Allergies No Known Allergies Allergy (Verified 10/25/16 19:06) Home Medications: Home Meds Medication Instructions Recorded Confirmed No Known Home Med 08/29/16 10/25/16 Review of Systems - Physician Review All systems were reviewed & negative as marked: Yes - Review of Systems Constitutional: absent: Fevers Respiratory: absent: SOB Cardiovascular: absent: Chest Pain Gastrointestinal: absent: Abdominal Pain, Nausea, Vomiting Genitourinary Female: absent: Dysuria Musculoskeletal: Other (L groin pain) Physical Exam Vital Signs Reviewed: Yes Vital Signs Temp Pulse Resp BP Pulse Ox 10/25/16 19:06 97.9 F 72 19 144/76 99 Temperature: Afebrile Blood Pressure: Normal Pulse: Regular Respiratory Rate: Normal Appearance: Positive for: Well-Appearing, Non-Toxic, Comfortable Pain Distress: None Mental Status: Positive for: Alert and Oriented X 3 - Systems Exam Head: Present: Atraumatic, Normocephalic Mouth: Present: Moist Mucous Membranes Neck: Present: Normal Range of Motion Respiratory/Chest: No: Respiratory Distress, Accessory Muscle Use Abdomen: No: Tenderness, Distention Back: Present: Normal Inspection Upper Extremity: Present: Normal Inspection. No: Cyanosis, Edema Lower Extremity: Present: NORMAL PULSES (femoral, dorsalis pedis ), Other ( tender to palpation L inner thigh; lateral thigh incision, clean, dry, intact; no erythema, warmth, pus; able to range L hip passively fully; decrease ranging actively). No: Edema Neurological: Present: GCS=15, CN II-XII Intact, Speech Normal Skin: Present: Warm, Dry, Normal Color. No: Rashes Psychiatric: Present: Alert, Oriented x 3, Normal Insight, Normal Concentration Medical Decision Making ED Course and Treatment: 10/25/16 19:33 Impression: A 76 year old female with left groin pain. Differential Diagnosis included but are not limited to: muscle strain vs. dislodged hardware vs. DVT Plan: -- US lower extremity -- Radiology of left femur -- Radiology of pelvis -- Reassess and disposition Prior Visits: Notes and results from previous visits were reviewed. Patient last reported to the emergency department on 08/27/16 for evaluation of left hip pain after mechanical fall. Patient admitted to Med/ Surg for left hip fracture. Patient discharged on 09/01/16. Progress Notes: 10/25/16 21:[address] Hogan 07/02/17 21:46 LE doppler showing no DVT; XR with old bony fragments that are displaced but mostly unchanged from previous. Patient with normal pulses palpable. Patient here in the ED able to bear weight with walker. Discussed with Dr. Hogan, who said to d/c her and have her bear less weight and call the office for an earlier appointment. - RAD Interpretation Radiology Orders: 10/25/16 19:23 DUPLEX LOWER EXTRM VEIN LEFT [US] Stat 10/25/16 19:24 Femur Left [FEMUR MIN 2 VIEWS LT] [RAD] Stat PELVIS ONE VIEW [RAD] Stat - Scribe Statement The provider has reviewed the documentation as recorded by the Lyndsayibhakeem Stone Provider Scribe Attestation: All medical record entries made by the Scribe were at my direction and personally dictated by me. I have reviewed the chart and agree that the record accurately reflects my personal performance of the history, physical exam, medical decision making, and the department course for this patient. I have also personally directed, reviewed, and agree with the discharge instructions and disposition. Disposition/Present on Arrival - Present on Arrival Any Indicators Present on Arrival: No History of DVT/PE: No History of Uncontrolled Diabetes: No Urinary Catheter: No History of Decub. Ulcer: No History Surgical Site Infection Following: None - Disposition Have Diagnosis and Disposition been Completed?: Yes Diagnosis: Left groin pain Disposition: HOME/ ROUTINE Disposition Time: 21:45 Patient Plan: Discharge Condition: GOOD Additional Instructions: Attempt to bear less weight on the affected leg with ambulation. Tramadol as needed for pain. Call Dr. Hogan's office in the morning for a sooner appointment. Return to the emergency department if any new concerning symptoms. Referrals: Judith Maradiaga MD [Primary Care Provider] - Follow up with primary Deepak Hogan MD [Staff Provider] - Follow up with primary
[2016-10-25 22:12] VITALS: BP 143/84; PULSE 72; RESP 20; O2SAT 100
--- NOTE | 2016-10-26 07:43 | RAD ---
PROCEDURE: Radiographs of the pelvis. HISTORY: L groin pain post op COMPARISON: None. FINDINGS: BONES: Pelvic Bones: Unremarkable. Hips: Grossly unremarkable. JOINTS: Sacroiliac Joints: Unremarkable. Pubic Symphysis: Unremarkable. OTHER FINDINGS: None. IMPRESSION: Unremarkable radiographs of the pelvis.
--- NOTE | 2016-10-26 07:43 | RAD ---
PROCEDURE: Left Femur Radiographs. HISTORY: L groin pain post op COMPARISON: None. TECHNIQUE: AP and Lateral Radiographs of the left femur. FINDINGS: FEMUR: There is a compression screw an intra medullary octavio. There is heterotopic bone formation inferior to the femoral neck and medial to the proximal femoral shaft SOFT TISSUES: Normal. OTHER FINDINGS: None. IMPRESSION: There is a compression screw and intra medullary octavio. There is heterotopic bone formation inferior to the femoral neck and medial to the proximal femoral shaft
--- NOTE | 2016-10-26 13:17 | US ---
PROCEDURE: Left lower extremity venous US HISTORY: Leg pain and swelling. Evaluate for DVT. PHYSICIAN(S): Marcelo Lyman MD. TECHNIQUE: Duplex sonography and color-flow Doppler with graded compression were used to evaluate the deep venous system of the left lower extremity. FINDINGS: The visualized deep venous system of the left lower extremity is sonographically normal and compressible. Normal wave forms and augmentation are seen. There is no sonographic evidence for deep venous thrombosis in the visualized segments of the left lower extremity. IMPRESSION: 1. No sonographic evidence for deep venous thrombosis in the visualized segments of the left lower extremity.
== END 2016-10-25 22:11 | disposition home or self-care (01) ==
LOC: ED 19:00
DX: R10.32 Left lower quadrant pain (principal)